=== PATIENT | male | born 1960 | race African-American/Black ===

== ENCOUNTER 2017-04-22 14:50 | Observation (INO) | payer BC ==
[2017-04-22 15:01] VITALS: BMI 29.2
--- NOTE | 2017-04-22 15:36 | PDOC ---
History of Present Illness - General History Source: Patient Exam Limitations: No Limitations <Dameon Calvo - Last Filed: 04/22/17 19:13> <Kurt Mancia - Last Filed: 04/22/17 19:37> - General Chief Complaint: Chest Pain Stated Complaint: CHEST PAIN Time Seen by Provider: 04/22/17 15:28 - History of Present Illness Initial Comments: 04/22/17 15:31 57M with pmh of dm2, HTN and GERD present with non-radiating non-reproducable sternal chest pain on exertion with diaphoresis for the past month. Has improved. Says "mouth is watery with the pain". Has a stress test done 2 years ago which was negative. No nausea, vomiting, dizziness, diaphoresis, sob, edema, dysuria. 04/22/17 15:35 04/22/17 17:37 04/22/17 17:38 (Dameon Calvo) Past History - Past Medical History Diabetes: Yes - Immunization History Immunization Up to Date: Yes - Psycho/Social/Smoking Cessation Hx Suicidal Ideation: No Smoking History: Current every day smoker Number of Cigarettes Smoked Daily: 10 Information on smoking cessation initiated: No Hx Alcohol Use: No Drug/Substance Use Hx: No <Dameon Calvo - Last Filed: 04/22/17 19:13> <Kurt Mancia - Last Filed: 04/22/17 19:37> - Past Medical History Allergies/Adverse Reactions: Allergies Allergy/AdvReac Type Severity Reaction Status Date / Time No Known Allergies Allergy Verified 04/22/17 14:59 Review of Systems - Review of Systems Constitutional: No: Symptoms Reported HEENTM: No: Symptoms Reported Respiratory: No: Symptoms reported Cardiac (ROS): Yes: See HPI ABD/GI: No: Symptoms Reported : No: Symptoms Reported Musculoskeletal: No: Symptoms Reported Integumentary: No: Symptoms Reported Neurological: No: Symptoms reported All Other Systems: Reviewed and Negative <Dameon Calvo - Last Filed: 04/22/17 19:13> *Physical Exam - Physical Exam General Appearance: Yes: Nourished, Appropriately Dressed. No: Apparent Distress HEENT: positive: EOMI, REMI, Normal ENT Inspection Neck: negative: Tender Respiratory/Chest: positive: Lungs Clear, Normal Breath Sounds. negative: Chest Tender Cardiovascular: positive: Regular Rhythm, Regular Rate, S1, S2 Gastrointestinal/Abdominal: positive: Normal Bowel Sounds, Soft, Protuberent. negative: Tender Musculoskeletal: positive: Vertebral Tenderness, Other (lipoma-like mass on back , for 20 years.). negative: CVA Tenderness <UmeshDameon - Last Filed: 04/22/17 19:13> - Vital Signs Last Vital Signs Temp Pulse Resp BP Pulse Ox 98.4 F 97 H 18 153/113 99 04/22/17 14:59 04/22/17 14:59 04/22/17 14:59 04/22/17 14:59 04/22/17 15:30 Heart Score/ECG Review - History History: Slightly suspicious - Electrocardiogram EKG: Normal - Age Age: 45-65 - Risk Factors Risk Factors Heart Score: Yes Hx Hypercholesterolemia, Yes Hx Hypertension, Yes Hx Diabetes, Yes Smoking History, Yes Positive family hx of cardiac disease Based on the list above the patient has:: >/=3 risk factors or Hx atherosclerotic disease - Troponin Troponin: </= normal limit - Score Heart Score - Total: 3 <Dameon Calvo - Last Filed: 04/22/17 19:13> ED Treatment Course - LABORATORY CBC & Chemistry Diagram: 04/22/17 15:30 04/22/17 15:30 <UmeshDameon - Last Filed: 04/22/17 19:13> - LABORATORY CBC & Chemistry Diagram: 04/22/17 15:30 04/22/17 15:30 <Kurt Manica - Last Filed: 04/22/17 19:37> - ADDITIONAL ORDERS Additional order review: Laboratory Results 04/22/17 15:30 Sodium 139 Potassium 4.4 Chloride 101 Carbon Dioxide 29 Anion Gap 9 BUN 16 Creatinine 1.5 H Creat Clearance w eGFR 48.41 Random Glucose 130 H Calcium 9.9 Total Bilirubin 0.6 AST 28 ALT 31 Alkaline Phosphatase 115 Creatine Kinase 519 H Creatine Kinase Index 0.5 CK-MB (CK-2) 2.700 Troponin I < 0.02 Total Protein 8.1 Albumin 3.8 04/22/17 15:30 RBC 5.10 MCV 80.7 MCHC 31.9 L RDW 15.7 MPV 9.9 Neutrophils % 68.4 Lymphocytes % 20.4 Monocytes % 8.8 Eosinophils % 1.8 Basophils % 0.6 - RADIOLOGY Radiology Studies Ordered: Category Date Time Status CHEST X-RAY PORTABLE* [RAD] Stat Radiology 04/22/17 16:22 Completed - Medications Given in the ED: ED Medications Discontinued Medications Generic Name Dose Route Start Last Admin Trade Name Astrid PRN Reason Stop Dose Admin Aspirin 243 mg 04/22/17 16:22 04/22/17 16:23 Asa - PO 04/22/17 16:23 243 mg ONCE ONE Administration Medical Decision Making <Dameon Calvo - Last Filed: 04/22/17 19:13> <Kurt Mancia - Last Filed: 04/22/17 19:37> - Medical Decision Making 04/22/17 17:38 57M with pmh of dm2, HTN and GERD present with non-radiating non-reproducable sternal chest pain on exertion with diaphoresis for the past month. EKG: sinus rhythm 04/22/17 17:40 CXR: neg 04/22/17 17:44 (Dameon Calvo) *DC/Admit/Observation/Transfer - Discharge Dispostion Admit: Yes <Dameon Calvo - Last Filed: 04/22/17 19:13> - Discharge Dispostion Admit: Yes <Kurt Mancia - Last Filed: 04/22/17 19:37> Diagnosis at time of Disposition: Unstable angina - Discharge Dispostion Condition at time of disposition: Stable - Referrals Referrals: Victorino Hill MD [Primary Care Provider] -
[2017-04-22 15:58] LABS: BASOPHIL 0.6 % (0-2.0); EOSINOPHIL 1.8 % (0-4.5); MCH 25.8 pg (25.7-33.7); MCHC 31.9 g/dl (32.0-35.9); MEAN CELL VOLUME 80.7 fl (80-96); MEAN PLT VOLUME 9.9 fl (7.5-11.1); NEUTROPHILS 68.4 % (42.8-82.8); PLATELET COUNT 286 K/MM3 (134-434); RDW 15.7 % (11.9-15.9); WHITE BLOOD COUNT 7.3 K/mm3 (4.0-10.0)
[2017-04-22 16:20] LABS: ALBUMIN 3.8 g/dl (3.4-5.0); ANION GAP 9 (8-16); BILIRUBIN,TOTAL 0.6 mg/dL (0.2-1.0); CALCIUM 9.9 mg/dL (8.5-10.1); CO2 29 mmol/L (21-32); CREATININE 1.5 mg/dL (0.7-1.3); GLUCOSE,RANDOM 130 mg/dL (74-106); SGOT/AST 28 U/L (15-37); SGPT/ALT 31 U/L (12-78); TOT PROT 8.1 g/dl (6.4-8.2)
[2017-04-22] MEDS ORDERED: ASPIRIN 81 MG CHEWABLE TABLETS PO ONE (16:22)
[2017-04-22 16:23] LABS: ALK PHOS 115 U/L (45-117); CPK 519 IU/L (39-308); TROPONIN I < 0.02 ng/ml (0.00-0.05)
--- NOTE | 2017-04-22 16:23 | PDOC ---
Attending Attestation - Resident Resident Name: Dameon Calvo - ED Attending Attestation I have performed the following: I have examined & evaluated the patient, The case was reviewed & discussed with the resident, I agree w/resident's findings & plan, Exceptions are as noted - HPI HPI: 04/22/17 16:20 57y M hx of htn, hl, dm, +smoking history presents with intermittent cp x 1 month - pt endorses the pain is a burning sensation but gets worse when he is walking around, lasts for approx 10 min and is associated with diaphoresis and nausea. Pt currently denies any chets pain. GENERAL: The patient is awake, alert, and fully oriented, Nontoxic - in no acute distress. HEAD: Normocephalic, atraumatic. EYES: extraocular movements intact, sclera anicteric, conjunctiva clear. ENT: Normal voice, Moist mucous membranes. NECK: Normal range of motion, supple LUNGS: Breath sounds equal, clear to auscultation bilaterally. No wheezes, no rhonchi, no rales. HEART: Regular rate and rhythm, normal S1 and S2 without murmur, rub or gallop. ABDOMEN: Soft, nontender, normoactive bowel sounds. No guarding, no rebound. . No CVA tenderness EXTREMITIES: Normal range of motion, no edema. No clubbing or cyanosis. No cords, erythema, or tenderness. NEUROLOGICAL: No facial assymetry, Normal speech, PSYCH: Normal mood, normal affect. SKIN: Warm, Dry, normal turgor, Concern for possible ACS due to exertional worsening of symptoms, possible it is just gerd. + Significant risk factors HEART score of 4 will give asa r/o acs with trops obs for risk stratification - Physicial Exam PE: 04/24/17 16:15 see above - Medical Decision Making 04/24/17 16:15 see clarence <Kurt Mancia - Last Filed: 04/24/17 16:17> Heart Score/ECG Review - History History: Moderately suspicious - Electrocardiogram EKG: Normal - Age Age: 45-65 - Risk Factors Risk Factors Heart Score: Yes Hx Hypercholesterolemia, Yes Hx Hypertension, Yes Hx Diabetes, Yes Smoking History, Yes Positive family hx of cardiac disease Based on the list above the patient has:: >/=3 risk factors or Hx atherosclerotic disease - Troponin Troponin: </= normal limit - Score Heart Score - Total: 4 <Dameon Calvo - Last Filed: 04/22/17 18:24> - History History: Moderately suspicious - Electrocardiogram EKG: Normal - Age Age: 45-65 - Risk Factors Risk Factors Heart Score: Yes Hx Hypercholesterolemia, Yes Hx Hypertension, Yes Hx Diabetes, Yes Smoking History Based on the list above the patient has:: >/=3 risk factors or Hx atherosclerotic disease - Troponin Troponin: </= normal limit - Score Heart Score - Total: 4 - ECG Impressions Comment:: 04/22/17 16:24 Twelve-lead EKG was performed and reviewed by me. There is normal sinus rhythm with a normal rate. rate of 79 The axis is normal. The intervals are normal. There is normal R wave progression There are no ST or T wave abnormalities. <Kurt Mancia - Last Filed: 04/24/17 16:17>
[2017-04-22] MEDS ORDERED: ASPIRIN 81 MG CHEWABLE TABLETS ONE (16:28)
[2017-04-22] MEDS ORDERED: METOPROLOL TARTRATE 25 MG TABLET (FP) PO ONE (19:57)
--- NOTE | 2017-04-22 19:57 | PN ---
Teaching Attending Note Name of Resident: Lois Lockwood ATTENDING PHYSICIAN STATEMENT I saw and evaluated the patient. I reviewed the resident's note and discussed the case with the resident. I agree with the resident's findings and plan as documented. SUBJECTIVE: 57 year old male presents c/o 2 month history of intermittent mid sternal exertional chest pain , 6/7 in intensity , non radiating . Today had it occurring while watching TV. PMH: Hyperlipidemia HTN DM Smoking OBJECTIVE: Vital Signs Temperature 98.4 F 04/22/17 14:59 Pulse Rate 97 H 04/22/17 14:59 Respiratory Rate 18 04/22/17 14:59 Blood Pressure 153/113 04/22/17 14:59 O2 Sat by Pulse Oximetry (%) 99 04/22/17 15:30 HEENT perrl, eom intact CVS s1 s2 heard mo mrg RS CTA b/l ABD soft NT CBC, BMP 04/22/17 15:30 04/22/17 15:30 ASSESSMENT AND PLAN: 1. Chest pain - telemetry - cardiac enzymes - BP control - nitro sl prn for chest pain - stress test and cardiology evaluation 2. HTN - uncontrolled - stat metoprolol 25mg po - monitor 3. DM - start insulin SS while in the hospital 4. Mild renal insufficiency - unknown baseline - trial of fluids - repeat renal function in am - outpatient follow up
[2017-04-22] MEDS ORDERED: SODIUM CHLORIDE 1,000 ML IV SCH (20:00)
[2017-04-22] MEDS: SODIUM CHLORIDE 1,000 ML IV SCH (20:10)
[2017-04-22] MEDS ORDERED: METOPROLOL TARTRATE 25 MG TABLET (FP) ONE (20:26)
--- NOTE | 2017-04-22 21:12 | HP ---
CHIEF COMPLAINT: chest pain PCP: none Nephro: Dr. Barnes Endocrine: Dr. Hill HISTORY OF PRESENT ILLNESS: 57 yr old man with NIDDMII, HTN, HLD, current everyday smoker presents with intermittent substernal aching nonradiating nonreproducible chest pain worse with exertion lasting 5-10 for the past two months. Previously it would occur when he walked for 20mins, he would need to rest for 20mins to recover. Last night the symptoms occurred while sitting watching TV, worse than usual. Continuing activity would make the pain worse, resting makes the pain better. chest pain is not related to food ingestion. Says he received a stress test [address] [facility] when he had similar symptoms, recalls the stress test was negative. Recently seen by film developer who sent him for renal u/s due to a concern for lupus, and was told the results was normal, he does not recall being told his Cr was elevated in the past. 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 2 weeks ago for callous removal, is unsure of his last Hba1c) HTN HLD PAST SURGICAL HISTORY: none Social History: Smoking: current everyday 1/2pk/day since he was 17yrs old Alcohol: every weekend, 10oz of bacardi in one sitting Drugs: denies Family History: brother with DM, sister with DM and HTN, denies family hx of early MT/stroke, cancers, rheumatological disorders Allergies No Known Allergies Allergy (Verified 04/22/17 14:59) HOME MEDICATIONS: Home Medications Medication Instructions Recorded Amlodipine Besylate [Norvasc -] 10 mg PO DAILY 04/22/17 Aspirin [ASA -] 81 mg PO DAILY 04/22/17 Atorvastatin Ca [Lipitor] 10 mg PO DAILY 04/22/17 Metformin HCl [Glucophage -] 500 mg PO DAILY 04/22/17 Metformin HCl [Metformin HCl ER] 1,000 mg PO DAILY 04/22/17 REVIEW OF SYSTEMS CONSTITUTIONAL: Absent: fever, chills, diaphoresis, generalized weakness, malaise, loss of appetite, weight change HEENT: Absent: rhinorrhea, nasal congestion, throat pain, throat swelling, difficulty swallowing, mouth swelling, ear pain, eye pain, visual changes CARDIOVASCULAR: Present: chest pain, Absent: syncope, palpitations, irregular heart rate, lightheadedness, peripheral edema RESPIRATORY: Absent: cough, shortness of breath, dyspnea with exertion, orthopnea, wheezing, stridor, hemoptysis GASTROINTESTINAL: Absent: abdominal pain, abdominal distension, nausea, vomiting, diarrhea, constipation, melena, hematochezia GENITOURINARY: Absent: dysuria, frequency, urgency, hesitancy, hematuria, flank pain, genital pain MUSCULOSKELETAL: Absent: myalgia, arthralgia, joint swelling, back pain, neck pain SKIN: Absent: rash, itching, pallor HEMATOLOGIC/IMMUNOLOGIC: Absent: easy bleeding, easy bruising, lymphadenopathy, frequent infections ENDOCRINE: Absent: unexplained weight gain, unexplained weight loss, heat intolerance, cold intolerance NEUROLOGIC: Absent: headache, focal weakness or paresthesias, dizziness, unsteady gait, seizure, mental status changes, bladder or bowel incontinence PSYCHIATRIC: Absent: anxiety, depression, suicidal or homicidal ideation, hallucinations. PHYSICAL EXAMINATION Vital Signs - 24 hr 04/22/17 04/22/17 14:59 15:30 Temperature 98.4 F Pulse Rate 97 H Respiratory 18 Rate Blood Pressure 153/113 O2 Sat by Pulse 99 99 Oximetry (%) GENERAL: Awake, alert, and fully oriented, in no acute distress. HEAD: Normal with no signs of trauma. EYES: Pupils equal, round and reactive to light, extraocular movements intact, sclera anicteric, conjunctiva clear. No lid lag. EARS, NOSE, THROAT: Ears normal, nares patent, oropharynx clear without exudates. Moist mucous membranes. NECK: Normal range of motion, supple without lymphadenopathy, JVD, or masses. LUNGS: Breath sounds equal, clear to auscultation bilaterally. No wheezes, and no crackles. No accessory muscle use. HEART: Regular rate and rhythm, normal S1 and S2 without murmur, rub or gallop. ABDOMEN: Soft, nontender, not distended, normoactive bowel sounds, no guarding, no rebound, no masses. No hepatomegaly or splenomegaly. MUSCULOSKELETAL: Normal range of motion at all joints. No bony deformities or tenderness. No CVA tenderness. UPPER EXTREMITIES: 2+ radial pulses, warm, well-perfused. No cyanosis. No clubbing. No peripheral edema. LOWER EXTREMITIES: 2+ DP pulses, warm, well-perfused. No calf tenderness. No peripheral edema. b/l medial soles with callouses. NEUROLOGICAL: Cranial nerves II-XII intact. Normal speech. Normal gait. PSYCHIATRIC: Cooperative. Good eye contact. Appropriate mood and affect. SKIN: Warm, dry, normal turgor, no rashes or lesions noted, normal capillary refill. Laboratory Results - last 24 hr 04/22/17 04/22/17 15:30 15:30 WBC 7.3 RBC 5.10 Hgb 13.1 Hct 41.2 MCV 80.7 MCH 25.8 MCHC 31.9 L RDW 15.7 Plt Count 286 MPV 9.9 Neutrophils % 68.4 Lymphocytes % 20.4 Monocytes % 8.8 Eosinophils % 1.8 Basophils % 0.6 Sodium 139 Potassium 4.4 Chloride 101 Carbon Dioxide 29 Anion Gap 9 BUN 16 Creatinine 1.5 H Creat Clearance w eGFR 48.41 Random Glucose 130 H Calcium 9.9 Total Bilirubin 0.6 AST 28 ALT 31 Alkaline Phosphatase 115 Creatine Kinase 519 H Creatine Kinase Index 0.5 CK-MB (CK-2) 2.700 Troponin I < 0.02 Total Protein 8.1 Albumin 3.8 ASSESSMENT/PLAN: 57 yr NIDDM II, HTN, HLD presents with intermittent chest pain placed on telemetry to r/o ACS. #r/o ACS - trend trops x2, - place on tele to r/o arrhythmia - echo - cardiology consult for evaluation for stress test given heart score of 4 - TSH level, lipid profile and HBA1c for further assessment - angina is also possible if ACS is r/o given pt's risk factors of DM, uncontrolled HTN, smoking #Elevated Cr, elevated creatine kinase - unknown baseline - will try to reach film developer for baseline - 2L NS bolus - urine studies - 11/2016 renal u/s normal #HTN - lopressor 25mg po once this evening - amlodapine 10mg po daily #DM - BGM ACHS, with NISS - hold metformin and glipizide #HLD - continue ASA 81mg po - lipitor 10mg po dialy #Smoking - smoking cessation discussed, counseling provided, pt declined nicotine patch, aware that he cannot smoke in the hospital - plans on quitting soon #diet: low Na/diabetic diet #DVT: heparin 5000BID Visit type - Emergency Visit Emergency Visit: Yes Care time: The patient presented to the Emergency Department on the above date and was hospitalized for further evaluation of their emergent condition. - New Patient This patient is new to me today: Yes Date on this admission: 04/22/17 - Critical Care Critical Care patient: No
[2017-04-22] MEDS: HEPARIN NA (PORCINE) 5,000 UNITS/ML 1ML VIAL SQ SCH (23:01)
[2017-04-23] MEDS: INSULIN SLIDING SCALE (NOVOLOG) 1 VIAL SQ SCH ×5 (06:39→21:17)
[2017-04-23] MEDS: SODIUM CHLORIDE 1,000 ML IV SCH ×2 (06:44→21:01)
[2017-04-23] MEDS: HEPARIN NA (PORCINE) 5,000 UNITS/ML 1ML VIAL SQ SCH ×2 (09:46→09:52)
[2017-04-23] MEDS ORDERED: ASPIRIN 81 MG CHEWABLE TABLETS PO SCH (10:00)
[2017-04-23] MEDS ORDERED: amLODIPine BESYLATE 10 MG TABLET (FP) PO SCH (10:00)
--- NOTE | 2017-04-23 10:51 | EKG ---
Test Reason : Blood Pressure : / mmHG Vent. Rate : 069 BPM Atrial Rate : 069 BPM P-R Int : 138 ms QRS Dur : 100 ms QT Int : 394 ms P-R-T Axes : 057 061 011 degrees QTc Int : 422 ms NORMAL SINUS RHYTHM NORMAL ECG WHEN COMPARED WITH ECG OF 22-APR-2017 15:08, NO SIGNIFICANT CHANGE WAS FOUND Confirmed by RASTA KATZ MD ([id number]) on 04/23/2017 10:50:42 AM Referred By: ACACIA KAUFFMAN Confirmed By:RASTA KATZ MD
--- NOTE | 2017-04-23 10:54 | EKG ---
Test Reason : Blood Pressure : / mmHG Vent. Rate : 079 BPM Atrial Rate : 079 BPM P-R Int : 130 ms QRS Dur : 104 ms QT Int : 374 ms P-R-T Axes : 056 049 010 degrees QTc Int : 428 ms NORMAL SINUS RHYTHM POSSIBLE LEFT ATRIAL ENLARGEMENT BORDERLINE ECG NO PREVIOUS ECGS AVAILABLE Confirmed by RASTA KATZ MD ([id number]) on 04/23/2017 10:54:04 AM Referred By: Confirmed By:RASTA KATZ MD
--- NOTE | 2017-04-23 13:56 | CON.CARD ---
Consult Consult Specialty:: Cardiology - History of Present Illness Chief Complaint: chest pain History of Present Illness: 57 M with HTN, smoking and DM with over a month history of chest tightness with radiation to the neck and nausea with diaphoresis. Symptoms occurred only with exertion and relieved with rest. Prior to his admission, he started to have rest pain. Now relieved. - History Source History Provided By: Patient Limitations to Obtaining History: No Limitations - Past Medical History Endocrine: Yes: Diabetes Mellitus - Alcohol/Substance Use Hx Alcohol Use: No - Smoking History Smoking history: Current every day smoker Have you smoked in the past 12 months: No Aproximately how many cigarettes per day: 10 Home Medications - Allergies Allergies/Adverse Reactions: Allergies Allergy/AdvReac Type Severity Reaction Status Date / Time No Known Allergies Allergy Verified 04/22/17 14:59 - Home Medications Home Medications: Ambulatory Orders Amlodipine Besylate [Norvasc -] 10 mg PO DAILY 04/22/17 Aspirin [ASA -] 81 mg PO DAILY 04/22/17 Atorvastatin Ca [Lipitor] 10 mg PO DAILY 04/22/17 Metformin HCl [Glucophage -] 500 mg PO DAILY 04/22/17 Metformin HCl [Metformin HCl ER] 1,000 mg PO DAILY 04/22/17 Review of Systems - Review of Systems Constitutional: reports: No Symptoms Eyes: reports: No Symptoms HENT: reports: No Symptoms Cardiovascular: reports: Chest Pain, Shortness of Breath Respiratory: reports: SOB Gastrointestinal: reports: No Symptoms - Risk Factors Known Risk Factors: Yes: Diabetes Mellitus, Hypertension, Smoking Vital Signs: Vital Signs Temperature 97.5 F L 04/23/17 09:49 Pulse Rate 71 04/23/17 09:49 Respiratory Rate 18 04/23/17 09:49 Blood Pressure 144/89 04/23/17 09:49 O2 Sat by Pulse Oximetry (%) 99 04/23/17 11:00 Constitutional: Yes: Well Nourished, No Distress Eyes: Yes: WNL, Conjunctiva Clear, EOM Intact HENT: Yes: Atraumatic, Normocephalic Neck: Yes: Supple, Trachea Midline Respiratory: Yes: Regular, CTA Bilaterally Gastrointestinal: Yes: Normal Bowel Sounds, Soft Renal/: Yes: WNL Cardiovascular: Yes: Regular Rate and Rhythm Heart Sounds: Yes: S1, S2 Murmur: No: Systolic Murmur, Diastolic Murmur, Grade 1, Grade 2, Grade 3, Grade 4, Grade 5, Grade 6 Extremities: Yes: WNL Edema: No - Other Data Labs, Other Data: Troponin, BNP 04/23/17 06:00 Troponin I < 0.02 Troponin, BNP 04/23/17 06:00 Troponin I < 0.02 Laboratory Tests 04/22/17 04/22/17 15:30 15:30 Hgb 13.1 Hct 41.2 Plt Count 286 BUN 16 Creatinine 1.5 H Echo: Report Reviewed Ejection Fraction %: LVEF > or = 40 % Imaging - Results Chest X-ray: Report Reviewed EKG: Image Reviewed (NSR) Assessment/Plan 57 M HTN smoker with DM with unstable angina. Recommend transfer to [facility] for Cardiac catheterization. Risks, benefits and alternatives were explained to the patient and his partner. Please place the patient on IV heparin or LMWH. Continue with ASA/Beta carlee Increase Lipitor 80mg HS Plavix 300mg x1 today. Hold Metformin
--- NOTE | 2017-04-23 13:59 | PN ---
Teaching Attending Note Name of Resident: Roland Dee ATTENDING PHYSICIAN STATEMENT I saw and evaluated the patient. I reviewed the resident's note and discussed the case with the resident. I agree with the resident's findings and plan as documented. SUBJECTIVE:no repeated episodes of CP while at the hospital. has similar episode 2 years ago and had stress test at that time which he reports as negative. has followed up with the director of casework since then but it has been some time since he saw them. states the CP has been slowly increasing worsening even now with minimal activity assoc with SOB. denies fever, chills, N/V/C/D OBJECTIVE: Last Vital Signs Temp Pulse Resp BP Pulse Ox 97.5 F L 71 18 144/89 99 04/23/17 09:49 04/23/17 09:49 04/23/17 09:49 04/23/17 09:49 04/23/17 11:00 General NAD CV S1 S2 RRR no murmur/rub/gallop no chest wall tenderness Lungs CTA B?L no wheezing/rales/rhonchi ASSESSMENT AND PLAN: 57yo M with PMH DM, HTN, dyslipidemia and smoker presented to the ER with CP 1. Typical CP- no repeated episodes. no events on cardiac markers. due to high risk factors (DM, HTN, +smoker, + family Hx) would recommend stress test. pt ate this AM. will see if can try to do test later in the day vs tomorrow. cardio consulted. on asa, statin 2. GABRIEL- unknown baseline Cr. call PMD to obtain. IVF. reports having recent kidney u/s indicating this likely not new. avoid nephrotoxic agents. urine studies pending 3. HTN- above goal. SBP <140 in DM. will start low dose betablocker. monitor 4. DM- uncontrolled. A1c 9.4. does not check sugars at home. pt has fear of needles. likely not to be compliant with insulin. will d/w pt risks/benefits. if does not comply will need to increase medical therapy (only on metformin low dose). nutritional consult. iss, bgm 5. Continuous nicotine dependence- counseled on need for smoking cessation. risks assoc with including advanced cardiovascular disease. refused nicotine patch 6. d/c planning pending results of NMST
[2017-04-23] MEDS: METOPROLOL TARTRATE 25 MG TABLET (FP) PO SCH ×2 (14:47→21:17)
[2017-04-23] MEDS ORDERED: HEPARIN NA (PORCINE) 5,000 UNITS/ML 1ML VIAL IVPUSH PRN ×2 (14:48)
[2017-04-23] MEDS ORDERED: CLOPIDOGREL BISULFATE 300 MG TABLET PO ONE (14:48)
[2017-04-23] MEDS ORDERED: HEPARIN - 25,000 UNIT in SODIUM CHLORIDE 495 ML IV SCH (15:00)
--- NOTE | 2017-04-23 16:06 | PN ---
Physical Exam: SUBJECTIVE: Patient seen and examined Patient states chest pain has resolved. Pt had stress test 2 years ago for similar chest pain that was negative per him. He states the chest pain is with exertion and has been worsening to the point where it is currently occuring at rest. OBJECTIVE: Vital Signs Period Temp Pulse Resp BP Sys/Brooke Pulse Ox Last 24 Hr 97.5 F-98.2 F 61-92 18-18 134-152/79-97 97-99 GENERAL: The patient is awake, alert, and fully oriented, in no acute distress. HEAD: Normal with no signs of trauma. EYES: PERRL, extraocular movements intact, sclera anicteric, conjunctiva clear. No ptosis. ENT: Ears normal, nares patent, oropharynx clear without exudates, moist mucous membranes. NECK: Trachea midline, full range of motion, supple. LUNGS: Breath sounds equal, clear to auscultation bilaterally, no wheezes, no crackles, no accessory muscle use. HEART: Regular rate and rhythm, S1, S2 without murmur, rub or gallop. ABDOMEN: Soft, nontender, nondistended, normoactive bowel sounds, no guarding, no rebound, no hepatosplenomegaly, no masses. EXTREMITIES: 2+ pulses, warm, well-perfused, no edema. NEUROLOGICAL: Cranial nerves II through XII grossly intact. Normal speech, gait not observed. PSYCH: Normal mood, normal affect. SKIN: Warm, dry, normal turgor, no rashes or lesions noted Laboratory Results - last 24 hr 04/23/17 04/23/17 04/23/17 06:00 06:34 11:27 POC Glucometer 176 217 Troponin I < 0.02 04/23/17 15:37 POC Glucometer 188 Troponin I Active Medications Generic Name Dose Route Start Last Admin Trade Name Freq PRN Reason Stop Dose Admin Amlodipine Besylate 10 mg 04/23/17 10:00 04/23/17 09:45 Norvasc - PO 10 mg DAILY LENORA Administration Aspirin 81 mg 04/23/17 10:00 04/23/17 09:45 Asa - PO 81 mg DAILY LENORA Administration Atorvastatin Calcium 80 mg 04/23/17 22:00 Lipitor - PO HS LENORA Heparin Sodium (Porcine) 1,000 unit 04/23/17 14:48 Heparin - IVPUSH PRN PRN Heparin Heparin Sodium (Porcine) 5,000 unit 04/23/17 14:48 Heparin - IVPUSH PRN PRN Heparin Sodium Chloride 1,000 mls @ 100 mls/hr 04/22/17 20:05 04/23/17 06:44 Normal Saline - IV 04/24/17 05:59 100 mls/hr ASDIR LENORA Administration Heparin Sodium (Porcine) 25, 500 mls @ 20 mls/hr 04/23/17 15:00 000 unit/ Sodium Chloride IV TITR LENORA Protocol 1,000 UNIT/HR Insulin Aspart 0 vial 04/22/17 22:00 04/23/17 11:35 Novolog Vial Sliding Scale - SQ 4 units ACHS LENORA Administration Protocol Metoprolol Tartrate 12.5 mg 04/23/17 14:00 04/23/17 14:47 Lopressor - PO 12.5 mg BID LENORA Administration ASSESSMENT/PLAN: 57 year old M with pmh of DM, HTN, HLD, and smoking presented to the ER for CP admitted for r/o acs #Chest Pain -originally resolved -had an episode with Dr. Garcia. -No events on the monitor -Paitent has significant risk factors -Possible transfer to [facility] for cardiac catheterization, patient deciding. -Continue aspirin 81 mg -Start lipitor 80 mg po hs -Start heparin drip IV -Plavix 300 mg x1 dose #CKD, -Patient's baseline is 1.5 -Avoid nephrotoxic agents -Urine studies pending #HTN -Continue metoprolol 12.5 mg po bid -Continue amlodipine 10 mg po dialy #DM -A1c is 9.4 -Patient afraid of needles and does not check BGM's or allow insulin coverage -Hold metformin #FEN/GI -IVF ns -wnl -sodium controlled diet #ppx -DVT- patient on heparin drip -GI: not indicated dispo: pending transfer dependent on patient's decision. Visit type - Emergency Visit Emergency Visit: Yes ED Registration Date: 04/22/17 Care time: The patient presented to the Emergency Department on the above date and was hospitalized for further evaluation of their emergent condition. - New Patient This patient is new to me today: Yes Date on this admission: 04/23/17 - Critical Care Critical Care patient: No
[2017-04-23] MEDS ORDERED: INSULIN (NOVOLOG) ASPART 100 UNITS/ML 10ML VIAL ONE ×3 (17:05→21:13)
[2017-04-23 21:26] VITALS: BP 158/91; PULSE 76; TEMP 98.2
[2017-04-23] MEDS ORDERED: ATORVASTATIN CA 80 MG TABLET (FP) PO SCH (22:00)
[2017-04-23] MEDS ORDERED: ATORVASTATIN CA 10 MG TABLET (FP) PO SCH ×2 (22:00)
--- NOTE | 2017-04-24 06:42 | DS ---
Physical Exam: LABS Selected Entries 04/22/17 04/23/17 04/23/17 14:59 19:30 21:00 Temperature 98.4 F 98.2 F Pulse Rate 97 H 76 Blood Pressure 153/113 158/91 O2 Sat by Pulse 100 Oximetry (%) Oxygen Delivery Room Air Method Laboratory Tests 04/22/17 04/22/17 04/22/17 10:20 15:30 15:30 WBC 7.3 Creatinine 1.5 H Random Glucose 130 H Hemoglobin A1c % 9.4 H Creatine Kinase 519 H Troponin I < 0.02 Triglycerides 338 H Cholesterol 281 H Total LDL Cholesterol 167 H HDL Cholesterol 53 TSH 0.53 04/23/17 06:00 WBC Creatinine Random Glucose Hemoglobin A1c % Creatine Kinase Troponin I < 0.02 Triglycerides Cholesterol Total LDL Cholesterol HDL Cholesterol TSH CXR- negative EKG- NSR, normal Echo- EF- 68.4, mild concentric LVH HOSPITAL COURSE: Date of Admission:04/22/17 Date of Discharge: 04/24/17 57 yr old man with NIDDMII, HTN, HLD, current everyday smoker presented with intermittent substernal aching nonradiating nonreproducible chest pain worse with exertion lasting 5-10 for the past two months. Previously it would occur when he walked for 20mins, he would need to rest for 20mins to recover. This time, symptoms occurred while sitting watching TV, worse than usual. Continuing activity would make the pain worse, resting makes the pain better. chest pain is not related to food ingestion. Says he received a stress test 2 years ago at [facility] when he had similar symptoms, recalls the stress test was negative. ED Course: (1) Tropx1 neg, EKG without acute ischemic changes (2) Heart score: 4 (3)ASA 325mg po given (4) cr -1.5 baseline Patient admitted for r/o acs. Trops were negative x2. Patient had no events on telemetry. Echocardiogram was done (results above). TSH and lipid panel was done (results above). Patient's a1c was elevated to 9.4. Patient had 1 repeated episode of chest pain while cardiology was evaluating the patient. Cardiology recommend transfer to [facility] for Cardiac catheterization. Risks, benefits and alternatives were explained to the patient and his partner. In regards to patient's A1c, patient is on metformin 500 mg. He is scared of needles and not likely to be compliant with insulin. Risks and benefits of elevated a1c were discsused with patient. Patient was evaluated seen by a automatic door mechanic and will follow up outpt regarding his DM Minutes to complete discharge: 45 Discharge Summary Reason For Visit: UNSTABLE ANGINA PECTORIS Condition: Stable - Instructions Referrals: Victorino Hill MD [Primary Care Provider] - Disposition: TRANSFER ACUTE CARE/OTHER HOSP - Home Medications Comprehensive Discharge Medication List: Ambulatory Orders Amlodipine Besylate [Norvasc -] 10 mg PO DAILY 04/22/17 Aspirin [ASA -] 81 mg PO DAILY 04/22/17 Metformin HCl [Glucophage -] 500 mg PO DAILY 04/22/17 Metformin HCl [Metformin HCl ER] 1,000 mg PO DAILY 04/22/17 Atorvastatin Ca [Lipitor] 80 mg PO HS tablet 04/24/17 Metoprolol Tartrate [Lopressor -] 12.5 mg PO BID tablet 04/24/17 This patient is new to me today: No Emergency Visit: Yes ED Registration Date: 04/22/17 Care time: The patient presented to the Emergency Department on the above date and was hospitalized for further evaluation of their emergent condition. Critical Care patient: No - Discharge Referral Referred to [facility] Med P.C.: No
[2017-04-24 15:26] LABS: CHOLESTEROL 281 mg/dL (50-200); LDL CHOLESTEROL (ONLY SJRH) 167 mg/dL (5-100)
[2017-04-24 15:32] LABS: THYROID STIMULATING HORMONE 0.53 uIU/ml (0.358-3.74)
== END 2017-04-23 22:15 | disposition short-term general hospital (02) ==
LOC: JER 14:50 → JERBED 19:37 → J4W 04-23 00:57
PROVIDERS: ADMIT Internal Medicine; ATTEND Internal Medicine
DX: I20.0 Unstable angina (principal); R07.9 Chest pain, unspecified; E11.9 Type 2 diabetes mellitus without complications; K21.9 Gastro-esophageal reflux disease without esophagitis; F17.210 Nicotine dependence, cigarettes, uncomplicated; E78.5 Hyperlipidemia, unspecified; R79.89 Other specified abnormal findings of blood chemistry; I12.9 Hypertensive chronic kidney disease with stage 1 through stage 4 chronic kidney disease, or unspecified chronic kidney disease; N18.9 Chronic kidney disease, unspecified; Z79.82 Long term (current) use of aspirin; Z79.84 Long term (current) use of oral hypoglycemic drugs
CPT/HCPCS: 36415; 71010-TC; 80053; 80061; 82553; 83036; 83721; 83930; 84443; 84484; 85025; 93005; 93010; 93306-TC; 99284-25; G0378; J1644

== ENCOUNTER → 2017-12-20 | Emergency (ER) | payer OTHER ==
[~2017-12-20] MED LIST: ASPIRIN 325 MG TABLET ONE; ASPIRIN 325 MG TABLET PO ONE; ASPIRIN 81 MG CHEWABLE TABLETS PO ONE; NITROGLYCERIN SUBLINGUAL 1/150 0.4 MG TAB ONE; NITROGLYCERIN SUBLINGUAL 1/200 0.3 MG BTL SL ONE
[2017-12-20 22:24] VITALS: BP 173/87; PULSE 80; TEMP 98; BMI 24.9
--- NOTE | 2017-12-20 23:21 | PDOC ---
History of Present Illness <Asiya Leon - Last Filed: 12/21/17 00:28> - History of Present Illness Initial Comments: 12/20/17 23:18 57 year old male with a PMH of NIDDM, HTN, HLD and CAD (s/p stent x3) presents to our ED c/o acute onset of chest pain. Pain is left sided, non-radiating, intermittent, "aching" 4/10 with no identifiable triggering or relieving factors. Denies any diaphoresis, lightheadedness, nausea, palpitations. Patient states the pain started this afternoon while he was watching television and resolved within 5-10 minutes. Pain returned while he was at dinner tonight prompting his visit to the ED. Patient states he was recently evaluated by his PMD and started on 4 new medications however he cannot recall the names. Smokes 5-7 cigarettes daily for > 40 years. Patient denies headache, fevers/chills, abdominal pain, diarrhea/constipation, dysuria/hematuria, recent travel or sick contacts. As per EMR patient evaluated for chest pain on 03/2017 and 07/2017. Echo in 2016 showed EF 68% and mild concentric LVH. <Adelina Bear - Last Filed: 12/21/17 05:53> - General Chief Complaint: Chest Pain Stated Complaint: CHEST PAIN Time Seen by Provider: 12/20/17 22:14 Past History <Asiya Leon - Last Filed: 12/21/17 00:28> - Past Medical History Cardiac Disorders: Yes (CAD) COPD: No Diabetes: Yes (NIddm) HTN: Yes Hypercholesterolemia: Yes - Surgical History Cardiac Surgery: Yes (Stents x 3 05/2017) - Immunization History Immunization Up to Date: Yes - Suicide/Smoking/Psychosocial Hx Smoking History: Current every day smoker Have you smoked in the past 12 months: Yes Number of Cigarettes Smoked Daily: 10 Information on smoking cessation initiated: No 'Breaking Loose' booklet given: 12/20/17 Hx Alcohol Use: No Drug/Substance Use Hx: No Substance Use Type: None Hx Substance Use Treatment: No <Adelina Bear - Last Filed: 12/21/17 05:53> - Past Medical History Allergies/Adverse Reactions: Allergies Allergy/AdvReac Type Severity Reaction Status Date / Time No Known Allergies Allergy Verified 08/23/17 14:59 Home Medications: Ambulatory Orders Amlodipine Besylate [Norvasc -] 10 mg PO DAILY 04/22/17 Aspirin [ASA -] 81 mg PO DAILY 04/22/17 Metformin HCl [Metformin HCl ER] 1,000 mg PO DAILY 04/22/17 metFORMIN HCL [Glucophage -] 500 mg PO DAILY 04/22/17 Atorvastatin Ca [Lipitor] 80 mg PO HS tablet 04/24/17 Metoprolol Tartrate [Lopressor -] 12.5 mg PO BID tablet 04/24/17 *Physical Exam - Vital Signs Last Vital Signs Temp Pulse Resp BP Pulse Ox 98 F 80 20 173/87 100 12/20/17 22:09 12/20/17 22:09 12/20/17 22:09 12/20/17 22:09 12/20/17 22:09 <Asiya Leon - Last Filed: 12/21/17 00:28> - Vital Signs Last Vital Signs Temp Pulse Resp BP Pulse Ox 98 F 80 20 173/87 100 12/20/17 22:09 12/20/17 22:09 12/20/17 22:09 12/20/17 22:09 12/20/17 22:09 <Adelina Bear - Last Filed: 12/21/17 05:53> Medical Decision Making - Medical Decision Making 12/21/17 00:28 PT ELOPED BEFORE I COULD SEE HIM --DR. LEON <Asiya Leon - Last Filed: 12/21/17 00:28> - Medical Decision Making 12/20/17 23:21 57 year old male with chest pain, h/o CAD. Will obtain ECG, basic labs, Troponin x1, CXR. 12/20/17 23:28 <Adelina Bear - Last Filed: 12/21/17 05:53> *DC/Admit/Observation/Transfer <Asiya Leon - Last Filed: 12/21/17 00:28> <Adelina Bear - Last Filed: 12/21/17 05:53> Diagnosis at time of Disposition: Chest pain - Discharge Dispostion Disposition: LEFT BEFORE [facility] GALVAN - Referrals Referrals: Joshua Gutierrez [Primary Care Provider] - - Patient Instructions - Post Discharge Activity
--- NOTE | 2017-12-22 13:40 | EKG ---
Test Reason : Blood Pressure : / mmHG Vent. Rate : 097 BPM Atrial Rate : 097 BPM P-R Int : 134 ms QRS Dur : 100 ms QT Int : 348 ms P-R-T Axes : 057 054 041 degrees QTc Int : 441 ms NORMAL SINUS RHYTHM NORMAL ECG WHEN COMPARED WITH ECG OF 08-JUL-2017 00:59, NO SIGNIFICANT CHANGE WAS FOUND Confirmed by MD MAR, LAUREN ([id number]) on 12/22/2017 1:40:21 PM Referred By: Confirmed By:LAUREN MANUEL MD
== END | disposition left against medical advice (07) ==
LOC: JER 22:03
DX: Z53.21 Procedure and treatment not carried out due to patient leaving prior to being seen by health care provider (principal)
CPT/HCPCS: 93005; 93010; 99282-25

== ENCOUNTER 2020-10-17 04:40 | Day surgery (SDC) | payer OTHER ==
[2020-10-11 15:07] VITALS: BMI 26.1
[2020-10-17 13:38] VITALS: BP 158/95; PULSE 75; TEMP 98.1
== END 2020-10-17 13:20 | disposition home or self-care (01) ==
LOC: JRADIR 04:40
PROVIDERS: ATTEND Internal Medicine
PROC: 3E013GC Introduction of Other Therapeutic Substance into Subcutaneous Tissue, Percutaneous Approach (ICD-10-PCS; principal; 2020-10-17)
DX: Z53.8 Procedure and treatment not carried out for other reasons (principal)
CPT/HCPCS: 82962

== ENCOUNTER 2020-11-20 05:43 | Day surgery (SDC) | payer OTHER ==
[2020-11-19 12:09] VITALS: BMI 25.5
[2020-11-20] MEDS ORDERED: SODIUM CHLORIDE 500 ML IV SCH (12:40)
[2020-11-20] MEDS ORDERED: MIDAZOLAM HCL 2 MG/2 ML SINGLE DOSE VIAL IVPUSH ONE ×2 (12:45→12:55)
[2020-11-20 16:55] VITALS: BP 160/82; PULSE 79; TEMP 98.1
== END 2020-11-20 17:00 | disposition home or self-care (01) ==
LOC: JRADIR 05:43
PROVIDERS: ATTEND Internal Medicine
PROC: 0TB03ZX Excision of Right Kidney, Percutaneous Approach, Diagnostic (ICD-10-PCS; principal; 2020-11-20)
DX: I12.9 Hypertensive chronic kidney disease with stage 1 through stage 4 chronic kidney disease, or unspecified chronic kidney disease (principal); E11.22 Type 2 diabetes mellitus with diabetic chronic kidney disease; R80.9 Proteinuria, unspecified; N18.30 Chronic kidney disease, stage 3 unspecified
CPT/HCPCS: 50200; 88300-TC; 88329

== ENCOUNTER 2021-08-11 09:34 | Inpatient (IN) | payer OTHER ==
[2021-08-11 09:42] VITALS: BMI 25.8
[2021-08-11] MEDS ORDERED: ALBUTEROL SO4 HFA INHALER IH ONE ×3 (10:27→11:14)
[2021-08-11 10:49] LABS: BASO % 0.5 % (0-2.0); EOS % 1.5 % (0-4.5); HEMATOCRIT 28.7 % (35.4-49); HEMOGLOBIN 9.3 GM/dL (11.7-16.9); LYMPH % 13.7 % (8-40); MCH 24.6 pg (25.7-33.7); MCHC 32.5 g/dl (32.0-35.9); MEAN CELL VOLUME 75.6 fl (80-96); MEAN PLT VOLUME 9.5 fl (7.5-11.1); MONO % 7.6 % (3.8-10.2); NEUT % 76.7 % (42.8-82.8); PLATELET COUNT 252 10^3/uL (134-434); RDW 15.1 % (11.9-15.9); WHITE BLOOD COUNT 7.1 K/mm3 (4.0-10.0)
[2021-08-11 10:57] LABS: INR 0.97 (0.83-1.09); PROTHROMBIN TIME (PATIENT) 11.4 SEC (9.7-13.0)
[2021-08-11 10:59] LABS: ACTIVATED PTT 31.4 SECONDS (25.2-36.5)
[2021-08-11 11:07] LABS: CHLORIDE 112 mmol/L (98-107); SODIUM 141 mmol/L (136-145)
[2021-08-11 11:10] LABS: CALCIUM 8.9 mg/dL (8.5-10.1)
[2021-08-11 11:11] LABS: ALBUMIN 3.3 g/dl (3.4-5.0); ANION GAP 8 MMOL/L (8-16); BLOOD UREA NITROGEN 28.8 mg/dL (7-18); CO2 20 mmol/L (21-32)
[2021-08-11 11:13] LABS: SGPT/ALT 31 U/L (13-61)
[2021-08-11 11:14] LABS: CREATININE 3.1 mg/dL (0.55-1.3); SGOT/AST 25 U/L (15-37)
[2021-08-11 11:15] LABS: BILIRUBIN,TOTAL 0.4 mg/dL (0.2-1); TOT PROT 7.5 g/dl (6.4-8.2)
[2021-08-11 11:16] LABS: ALK PHOS 111 U/L (45-117)
[2021-08-11] MEDS ORDERED: ASPIRIN 81 MG CHEWABLE TABLETS PO ONE (11:25)
[2021-08-11] MEDS ORDERED: ASPIRIN 81 MG CHEWABLE TABLETS ONE (11:30)
[2021-08-11 11:43] LABS: GLUCOSE,RANDOM 40 mg/dL (74-106)
[2021-08-11 17:04] VITALS: BP 157/84; PULSE 83; TEMP 98
== END 2021-08-11 17:04 | disposition left against medical advice (07) | DRG 198 ==
LOC: JER 09:34 → JERBED 12:58
PROVIDERS: ADMIT Family Medicine; ATTEND Family Medicine
DX: R07.89 Other chest pain (principal); E78.5 Hyperlipidemia, unspecified; I12.9 Hypertensive chronic kidney disease with stage 1 through stage 4 chronic kidney disease, or unspecified chronic kidney disease; N18.30 Chronic kidney disease, stage 3 unspecified; E11.22 Type 2 diabetes mellitus with diabetic chronic kidney disease; I25.10 Atherosclerotic heart disease of native coronary artery without angina pectoris; D64.9 Anemia, unspecified; F17.210 Nicotine dependence, cigarettes, uncomplicated; Z95.5 Presence of coronary angioplasty implant and graft
CPT/HCPCS: 36415; 71046-TC-FY; 80053; 82550; 82553; 82962; 84484; 85025; 85610; 85730; 93005; 93010; 99285-25; C9803; U0003; U0005

== ENCOUNTER 2022-06-13 09:03 | Inpatient (IN) | payer OTHER ==
[2022-06-13 09:16] VITALS: TEMP 97.9; BMI 25.8
[2022-06-13] MEDS ORDERED: SODIUM CHLORIDE 0.9% 500 ML INFUS.BAG IV ONE (10:33)
[2022-06-13 11:09] LABS: BASO % 0.5 % (0-2.0); EOS % 1.8 % (0-4.5); HEMATOCRIT 27.3 % (35.4-49); HEMOGLOBIN 9.2 GM/dL (11.7-16.9); LYMPH % 18.6 % (8-40); MCH 25.7 pg (25.7-33.7); MCHC 33.6 g/dl (32.0-35.9); MEAN CELL VOLUME 76.6 fl (80-96); MEAN PLT VOLUME 9.1 fl (7.5-11.1); MONO % 7.8 % (3.8-10.2); NEUT % 71.3 % (42.8-82.8); PLATELET COUNT 253 10^3/uL (134-434); RBC 3.56 M/mm3 (4.00-5.60); RDW 16.3 % (11.9-15.9); WHITE BLOOD COUNT 4.8 K/mm3 (4.0-10.0)
[2022-06-13 11:16] LABS: INR 1.03 (0.83-1.09); PROTHROMBIN TIME (PATIENT) 11.8 SEC (9.7-13.0)
[2022-06-13 11:18] LABS: ACTIVATED PTT 32.1 SECONDS (25.2-36.5)
[2022-06-13 11:34] LABS: ALBUMIN 3.3 g/dl (3.4-5.0); BLOOD UREA NITROGEN 41.5 mg/dL (7-18); MAGNESIUM 2.2 mg/dL (1.8-2.4)
[2022-06-13 11:36] LABS: CREATININE 4.3 mg/dL (0.55-1.3); PHOSPHOROUS 3.9 mg/dL (2.5-4.9)
[2022-06-13 11:38] LABS: TOT PROT 7.4 g/dl (6.4-8.2)
[2022-06-13 11:39] LABS: BILIRUBIN,TOTAL 0.6 mg/dL (0.2-1)
[2022-06-13 14:17] VITALS: BP 150/97; PULSE 73; RESP 19
[2022-06-13] MEDS ORDERED: INSULIN SLIDING SCALE (NOVOLOG) 1 VIAL SQ SCH (16:30)
[2022-06-13] MEDS ORDERED: HEPARIN NA (PORCINE) 5,000 UNITS/ML 1ML VIAL SQ SCH (22:00)
[2022-06-14] MEDS ORDERED: amLODIPine BESYLATE 10 MG TABLET (FP) PO SCH (10:00)
== END 2022-06-13 17:39 | disposition left against medical advice (07) | DRG 111 ==
LOC: JER 09:03 → JERBED 13:35
PROVIDERS: ADMIT Internal Medicine; ATTEND Internal Medicine
DX: R42 Dizziness and giddiness (principal); E11.649 Type 2 diabetes mellitus with hypoglycemia without coma; E11.22 Type 2 diabetes mellitus with diabetic chronic kidney disease; I25.10 Atherosclerotic heart disease of native coronary artery without angina pectoris; I12.9 Hypertensive chronic kidney disease with stage 1 through stage 4 chronic kidney disease, or unspecified chronic kidney disease; N18.30 Chronic kidney disease, stage 3 unspecified; Z79.4 Long term (current) use of insulin; D63.1 Anemia in chronic kidney disease; R55 Syncope and collapse; F17.210 Nicotine dependence, cigarettes, uncomplicated; Z53.29 Procedure and treatment not carried out because of patient's decision for other reasons
CPT/HCPCS: 36415; 70450-TC; 71045-TC-FY; 80053; 82962; 83735; 84100; 84484; 85025; 85610; 85730; 86850; 86900; 86901; 93005; 93010; 99285-25; C9803-CS; U0003; U0005

== ENCOUNTER 2022-09-09 12:44 | Inpatient (IN) | payer OTHER ==
[2022-09-09] MEDS ORDERED: ACETAMINOPHEN 500 MG TABLET (FP) PO ONE (13:03)
[2022-09-09 13:22] LABS: BASO % 0.8 % (0-2.0); EOS % 1.6 % (0-4.5); HEMATOCRIT 25.6 % (35.4-49); HEMOGLOBIN 8.2 GM/dL (11.7-16.9); LYMPH % 15.8 % (8-40); MCH 24.7 pg (25.7-33.7); MCHC 32.3 g/dl (32.0-35.9); MEAN CELL VOLUME 76.5 fl (80-96); MEAN PLT VOLUME 9.3 fl (7.5-11.1); MONO % 7.3 % (3.8-10.2); NEUT % 74.5 % (42.8-82.8); PLATELET COUNT 198 10^3/uL (134-434); RBC 3.34 M/mm3 (4.00-5.60); RDW 15.9 % (11.9-15.9); WHITE BLOOD COUNT 6.4 K/mm3 (4.0-10.0)
[2022-09-09 13:32] LABS: INR 1.06 (0.83-1.09); PROTHROMBIN TIME (PATIENT) 12.2 SEC (9.7-13.0)
[2022-09-09 13:34] LABS: ACTIVATED PTT 31.1 SECONDS (25.2-36.5)
[2022-09-09 13:57] LABS: ALBUMIN 3.4 g/dl (3.4-5.0); BLOOD UREA NITROGEN 41.3 mg/dL (7-18); MAGNESIUM 1.7 mg/dL (1.8-2.4)
[2022-09-09 14:00] LABS: CREATININE 4.3 mg/dL (0.55-1.3)
[2022-09-09 14:01] LABS: TOT PROT 6.9 g/dl (6.4-8.2)
[2022-09-09 14:02] LABS: BILIRUBIN,TOTAL 0.5 mg/dL (0.2-1)
[2022-09-09] MEDS ORDERED: LACTATED RINGERS SOLUTION 1000 ML INFUS.BAG IV ONE (14:49)
[2022-09-09] MEDS ORDERED: MAGNESIUM SULF 50% (8.12 MEQ/2 ML-1 GM VIAL) IVPB ONE (14:49)
[2022-09-09] MEDS ORDERED: ACETAMINOPHEN 325 MG TABLET (FP) ONE (15:00)
[2022-09-09] MEDS ORDERED: MAGNESIUM 1GM/D5W - 1 GM/100 ML IVPB IVPB ONE (15:00)
[2022-09-09] MEDS: hydrALAZINE HCL 50 MG TABLET (FP) PO SCH (21:25)
[2022-09-09] MEDS: HEPARIN NA (PORCINE) 5,000 UNITS/ML 1ML VIAL SQ SCH (21:26)
[2022-09-09] MEDS: ATORVASTATIN CA 80 MG TABLET (FP) PO SCH (21:26)
[2022-09-09] MEDS: INSULIN SLIDING SCALE (NOVOLOG) 1 VIAL SQ SCH (21:27)
[2022-09-09 23:51] VITALS: BMI 24.1
[2022-09-10] MEDS: INSULIN SLIDING SCALE (NOVOLOG) 1 VIAL SQ SCH ×4 (06:23→21:38)
[2022-09-10] MEDS: HEPARIN NA (PORCINE) 5,000 UNITS/ML 1ML VIAL SQ SCH ×3 (06:23→21:28)
[2022-09-10 08:50] LABS: BASO % 0.6 % (0-2.0); EOS % 2.9 % (0-4.5); HEMATOCRIT 25.6 % (35.4-49); HEMOGLOBIN 8.4 GM/dL (11.7-16.9); MCH 25.9 pg (25.7-33.7); MEAN CELL VOLUME 78.6 fl (80-96); MEAN PLT VOLUME 9.2 fl (7.5-11.1); MONO % 7.6 % (3.8-10.2); NEUT % 61.9 % (42.8-82.8); PLATELET COUNT 194 10^3/uL (134-434); RBC 3.25 M/mm3 (4.00-5.60); WHITE BLOOD COUNT 4.9 K/mm3 (4.0-10.0)
[2022-09-10 09:15] LABS: BLOOD UREA NITROGEN 38.9 mg/dL (7-18); CALCIUM 8.6 mg/dL (8.5-10.1)
[2022-09-10 09:16] LABS: MAGNESIUM 1.8 mg/dL (1.8-2.4)
[2022-09-10 09:19] LABS: BILIRUBIN,TOTAL 0.3 mg/dL (0.2-1); CREATININE 4.1 mg/dL (0.55-1.3); PHOSPHOROUS 3.1 mg/dL (2.5-4.9); TOT PROT 6.4 g/dl (6.4-8.2)
[2022-09-10] MEDS ORDERED: REGADENOSON 0.4 MG/5 ML PRE-FILLED SYRINGE IVPUSH ONE ×2 (09:59→10:00)
[2022-09-10] MEDS ORDERED: ASPIRIN 81 MG CHEWABLE TABLETS PO SCH (10:00)
[2022-09-10] MEDS: ASPIRIN COATED 81 MG TABLET.EC PO SCH (12:55)
[2022-09-10] MEDS: FAMOTIDINE 10 MG TABLET PO SCH (12:55)
[2022-09-10] MEDS: FERROUS SO4 325 MG TABLET (FP) PO SCH (12:56)
[2022-09-10] MEDS: LOSARTAN POTASSIUM 50 MG TABLET PO SCH (12:56)
[2022-09-10] MEDS: hydrALAZINE HCL 50 MG TABLET (FP) PO SCH ×2 (12:56→21:28)
[2022-09-10] MEDS: amLODIPine BESYLATE 10 MG TABLET (FP) PO SCH (12:57)
[2022-09-10] MEDS: CALCITRIOL 0.25 MCG CAPSULE (FP) PO SCH (12:57)
[2022-09-10 14:28] LABS: EPI CELLS 4 /uL (0-25.1); HYALINE CASTS 0 /uL (0-3.1); URINE APPEARANCE CLEAR; URINE BACTERIA 1 /uL (0-1359); URINE BILIRUBIN NEGATIVE (NEGATIVE); URINE COLOR YELLOW; URINE GLUCOSE (UA) TRACE (NEGATIVE); URINE KETONE NEGATIVE (NEGATIVE); URINE LEUK ESTERASE NEGATIVE (NEGATIVE); URINE NITRITE NEGATIVE (NEGATIVE); URINE PROTEIN 3+ (NEGATIVE); URINE RBC 20 /uL (0-23.9); URINE UROBILINOGEN 0.2 mg/dL (0.2-1.0); URINE WBC 7 /uL (0-25.8)
[2022-09-10] MEDS ORDERED: CLOPIDOGREL BISULFATE 300 MG TABLET PO ONE (15:00)
[2022-09-10] MEDS: SODIUM CHLORIDE 0.45% 1,000 ML IV SCH (16:48)
[2022-09-10] MEDS: ATORVASTATIN CA 80 MG TABLET (FP) PO SCH (21:28)
[2022-09-11] MEDS: INSULIN SLIDING SCALE (NOVOLOG) 1 VIAL SQ SCH ×4 (06:01→21:56)
[2022-09-11] MEDS: HEPARIN NA (PORCINE) 5,000 UNITS/ML 1ML VIAL SQ SCH ×3 (06:01→21:57)
[2022-09-11 08:21] LABS: HEMATOCRIT 23.8 % (35.4-49); HEMOGLOBIN 7.8 GM/dL (11.7-16.9); MCH 24.9 pg (25.7-33.7); MCHC 32.9 g/dl (32.0-35.9); MEAN CELL VOLUME 75.9 fl (80-96); PLATELET COUNT 178 10^3/uL (134-434); RBC 3.14 M/mm3 (4.00-5.60); RDW 16.1 % (11.9-15.9); WHITE BLOOD COUNT 5.2 K/mm3 (4.0-10.0)
[2022-09-11 08:25] LABS: PHOSPHOROUS 3.3 mg/dL (2.5-4.9)
[2022-09-11 08:26] LABS: ALBUMIN 2.9 g/dl (3.4-5.0)
[2022-09-11 08:27] LABS: TOT PROT 6.3 g/dl (6.4-8.2)
[2022-09-11 08:28] LABS: CALCIUM 8.3 mg/dL (8.5-10.1)
[2022-09-11 08:29] LABS: CREATININE 4.1 mg/dL (0.55-1.3); MAGNESIUM 1.6 mg/dL (1.8-2.4)
[2022-09-11 08:58] LABS: BILIRUBIN,TOTAL 0.3 mg/dL (0.2-1)
[2022-09-11] MEDS: hydrALAZINE HCL 50 MG TABLET (FP) PO SCH ×2 (10:06→21:51)
[2022-09-11] MEDS: FERROUS SO4 325 MG TABLET (FP) PO SCH (10:06)
[2022-09-11] MEDS: LOSARTAN POTASSIUM 50 MG TABLET PO SCH (10:07)
[2022-09-11] MEDS: ASPIRIN COATED 81 MG TABLET.EC PO SCH (10:07)
[2022-09-11] MEDS: FAMOTIDINE 10 MG TABLET PO SCH (10:07)
[2022-09-11] MEDS: amLODIPine BESYLATE 10 MG TABLET (FP) PO SCH (10:07)
[2022-09-11] MEDS: CLOPIDOGREL BISULFATE 75 MG TABLET (FP) PO SCH (10:07)
[2022-09-11] MEDS: CALCITRIOL 0.25 MCG CAPSULE (FP) PO SCH (10:07)
[2022-09-11] MEDS ORDERED: MAGNESIUM SULF 50% (8.12 MEQ/2 ML-1 GM VIAL) IVPB ONE (13:45)
[2022-09-11] MEDS: SODIUM CHLORIDE 0.45% 1,000 ML IV SCH (18:22)
[2022-09-11] MEDS ORDERED: LOSARTAN POTASSIUM 50 MG TABLET PO SCH (18:44)
[2022-09-11] MEDS: ATORVASTATIN CA 80 MG TABLET (FP) PO SCH (21:51)
[2022-09-12] MEDS: INSULIN SLIDING SCALE (NOVOLOG) 1 VIAL SQ SCH ×2 (06:16→13:14)
[2022-09-12] MEDS: HEPARIN NA (PORCINE) 5,000 UNITS/ML 1ML VIAL SQ SCH ×2 (06:21→13:15)
[2022-09-12 08:27] LABS: BASO % 0.4 % (0-2.0); HEMATOCRIT 22.8 % (35.4-49); HEMOGLOBIN 7.5 GM/dL (11.7-16.9); MCH 24.7 pg (25.7-33.7); MEAN CELL VOLUME 74.8 fl (80-96); MEAN PLT VOLUME 9.6 fl (7.5-11.1); MONO % 8.7 % (3.8-10.2); NEUT % 62.9 % (42.8-82.8); PLATELET COUNT 184 10^3/uL (134-434); RBC 3.05 M/mm3 (4.00-5.60); RDW 16.2 % (11.9-15.9); WHITE BLOOD COUNT 4.5 K/mm3 (4.0-10.0)
[2022-09-12 08:48] LABS: CALCIUM 8.5 mg/dL (8.5-10.1)
[2022-09-12 08:50] LABS: ALBUMIN 2.9 g/dl (3.4-5.0); BLOOD UREA NITROGEN 41.2 mg/dL (7-18); MAGNESIUM 2.3 mg/dL (1.8-2.4)
[2022-09-12 08:52] LABS: CREATININE 4.3 mg/dL (0.55-1.3); PHOSPHOROUS 3.2 mg/dL (2.5-4.9)
[2022-09-12 08:53] LABS: TOT PROT 6.2 g/dl (6.4-8.2)
[2022-09-12 08:54] LABS: BILIRUBIN,TOTAL 0.2 mg/dL (0.2-1)
[2022-09-12] MEDS: hydrALAZINE HCL 50 MG TABLET (FP) PO SCH (10:48)
[2022-09-12] MEDS: FERROUS SO4 325 MG TABLET (FP) PO SCH (10:48)
[2022-09-12] MEDS: CLOPIDOGREL BISULFATE 75 MG TABLET (FP) PO SCH (10:48)
[2022-09-12] MEDS: ASPIRIN COATED 81 MG TABLET.EC PO SCH (10:48)
[2022-09-12] MEDS: FAMOTIDINE 10 MG TABLET PO SCH (10:48)
[2022-09-12] MEDS: amLODIPine BESYLATE 10 MG TABLET (FP) PO SCH (10:48)
[2022-09-12] MEDS: CALCITRIOL 0.25 MCG CAPSULE (FP) PO SCH (10:49)
[2022-09-12 11:30] VITALS: BP 137/82; PULSE 63; RESP 24; TEMP 97.6
== END 2022-09-12 15:59 | disposition short-term general hospital (02) | DRG 198 ==
LOC: JER 12:44 → JERBED 14:05 → J4W 20:44 → OBSVTOIN 09-10 14:40
PROVIDERS: ADMIT Internal Medicine; ATTEND Internal Medicine
DX: I25.110 Atherosclerotic heart disease of native coronary artery with unstable angina pectoris (principal); E11.22 Type 2 diabetes mellitus with diabetic chronic kidney disease; I12.9 Hypertensive chronic kidney disease with stage 1 through stage 4 chronic kidney disease, or unspecified chronic kidney disease; N18.30 Chronic kidney disease, stage 3 unspecified; E78.5 Hyperlipidemia, unspecified; Z79.4 Long term (current) use of insulin; F17.210 Nicotine dependence, cigarettes, uncomplicated; D50.9 Iron deficiency anemia, unspecified; F41.9 Anxiety disorder, unspecified
CPT/HCPCS: 0241U-QW; 36415; 71045-TC-FY; 78452-TC; 80053; 80061; 81003; 82272; 82728; 82962; 83036; 83540; 83550; 83735; 83880; 84100; 84443; 84484; 85025; 85027; 85045; 85610; 85730; 87086; 93005; 93010; 93017; 93306-TC; 99285-25; A9502; G0378; J1644; J2785

== ENCOUNTER 2023-01-21 09:47 | Inpatient (IN) | payer OTHER ==
[2023-01-21 10:01] VITALS: BMI 22.8
[2023-01-21] MEDS ORDERED: ASPIRIN 81 MG CHEWABLE TABLETS PO ONE (10:23)
[2023-01-21] MEDS ORDERED: ASPIRIN 81 MG CHEWABLE TABLETS ONE (10:38)
[2023-01-21] MEDS ORDERED: SODIUM CHLORIDE 0.9% 500 ML INFUS.BAG IV ONE (11:21)
[2023-01-21 11:28] LABS: BASO % 0.6 % (0-2.0); EOS % 0.8 % (0-4.5); HEMATOCRIT 31.8 % (35.4-49); HEMOGLOBIN 10.3 GM/dL (11.7-16.9); LYMPH % 14.1 % (8-40); MCH 25.3 pg (25.7-33.7); MCHC 32.4 g/dl (32.0-35.9); MEAN CELL VOLUME 78.2 fl (80-96); MEAN PLT VOLUME 10.2 fl (7.5-11.1); NEUT % 78.5 % (42.8-82.8); PLATELET COUNT 274 10^3/uL (134-434); RBC 4.07 M/mm3 (4.00-5.60); RDW 15.6 % (11.9-15.9); WHITE BLOOD COUNT 6.9 K/mm3 (4.0-10.0)
[2023-01-21 11:34] LABS: INR 1.06 (0.83-1.09); PROTHROMBIN TIME (PATIENT) 12.3 SEC (9.7-13.0)
[2023-01-21 11:37] LABS: ACTIVATED PTT 32.4 SECONDS (25.2-36.5)
[2023-01-21 11:46] LABS: CHLORIDE 114 mmol/L (98-107); SODIUM 132 mmol/L (136-145)
[2023-01-21 11:48] LABS: ALBUMIN 3.9 g/dl (3.4-5.0); BLOOD UREA NITROGEN 78.5 mg/dL (7-18); CALCIUM 9.4 mg/dL (8.5-10.1); CO2 11 mmol/L (21-32); GLUCOSE,RANDOM 194 mg/dL (74-106); MAGNESIUM 2.3 mg/dL (1.8-2.4)
[2023-01-21 11:51] LABS: SGOT/AST 28 U/L (15-37); SGPT/ALT 32 U/L (13-61)
[2023-01-21 11:52] LABS: TOT PROT 8.8 g/dl (6.4-8.2)
[2023-01-21 11:54] LABS: ALK PHOS 100 U/L (45-117); BILIRUBIN,TOTAL 0.3 mg/dL (0.2-1)
[2023-01-21 11:58] LABS: ANION GAP 7 MMOL/L (8-16); POTASSIUM 6.4 mmol/L (3.5-5.1)
[2023-01-21] MEDS ORDERED: CALCIUM GLUC IN NACL, ISO-OSM 1 GM/50 ML BAG IVPB ONE ×2 (12:03→12:31)
[2023-01-21] MEDS ORDERED: ALBUTEROL SO4 2 MG TABLET PO ONE (12:51)
[2023-01-21] MEDS ORDERED: DEXTROSE 50%-WATER - 25 GM/50 ML VIAL IVPUSH ONE (12:51)
[2023-01-21] MEDS ORDERED: INSULIN REGULAR HUMAN 100 UNITS/ML *VIAL IVPUSH ONE (12:51)
[2023-01-21] MEDS ORDERED: SODIUM BICARBONATE 8.4% 50 MEQ/50 ML DISP.SYRIN IVPUSH ONE ×2 (12:53→14:10)
[2023-01-21] MEDS ORDERED: SODIUM ZIRCONIUM CYCLOSILICATE (LOKELMA) 5 GM PACKET PO SCH (13:00)
[2023-01-21 13:08] LABS: CHLORIDE 114 mmol/L (98-107); SODIUM 135 mmol/L (136-145)
[2023-01-21 13:09] LABS: CALCIUM 9.7 mg/dL (8.5-10.1)
[2023-01-21 13:10] LABS: BLOOD UREA NITROGEN 80.7 mg/dL (7-18); CO2 14 mmol/L (21-32); GLUCOSE,RANDOM 202 mg/dL (74-106)
[2023-01-21] MEDS ORDERED: ALBUTEROL SO4 0.083% IH SOL 2.5 MG/3 ML VIAL.NEB. NEB ONE ×2 (13:16→13:17)
[2023-01-21] MEDS ORDERED: SODIUM ZIRCONIUM CYCLOSILICATE (LOKELMA) 5 GM PACKET ONE ×3 (13:16→22:54)
[2023-01-21] MEDS ORDERED: SODIUM BICARBONATE 8.4% 50 MEQ/50 ML DISP.SYRIN ONE ×3 (13:17→20:02)
[2023-01-21] MEDS ORDERED: DEXTROSE 50%-WATER 25 GM/50 ML DISP.SYRIN ONE (13:19)
[2023-01-21 13:22] LABS: ANION GAP 7 MMOL/L (8-16); CREATININE 8.1 mg/dL (0.55-1.3); POTASSIUM 6.8 mmol/L (3.5-5.1)
[2023-01-21] MEDS ORDERED: ACETAMINOPHEN 325 MG TABLET (FP) PO PRN (14:53)
[2023-01-21] MEDS: INSULIN SLIDING SCALE (NOVOLOG) 1 VIAL SQ SCH ×2 (17:51→23:04)
[2023-01-21] MEDS ORDERED: SODIUM CHLORIDE 0.45% 1,000 ML with SODIUM BICARBONATE 8.4% - 50 MEQ IV SCH (19:45)
[2023-01-21] MEDS ORDERED: SODIUM BICARBONATE 8.4% - 50 MEQ in SODIUM CHLORIDE 0.45% 1,000 ML IV SCH (19:46)
[2023-01-21] MEDS: SODIUM ZIRCONIUM CYCLOSILICATE (LOKELMA) 5 GM PACKET PO SCH ×2 (20:15→23:01)
[2023-01-21] MEDS: SODIUM BICARBONATE 8.4% 50 MEQ/50 ML DISP.SYRIN IVPUSH SCH (20:16)
[2023-01-21] MEDS ORDERED: ATORVASTATIN CA 80 MG TABLET (FP) ONE (22:54)
[2023-01-21] MEDS ORDERED: hydrALAZINE HCL 25 MG TABLET (FP) ONE (22:54)
[2023-01-21] MEDS: hydrALAZINE HCL 25 MG TABLET (FP) PO SCH (23:00)
[2023-01-21] MEDS: ATORVASTATIN CA 80 MG TABLET (FP) PO SCH (23:01)
[2023-01-21] MEDS ORDERED: INSULIN (NOVOLOG) ASPART 100 UNITS/ML 10ML VIAL ONE (23:02)
[2023-01-22] MEDS: SODIUM BICARBONATE 8.4% 50 MEQ/50 ML DISP.SYRIN IVPUSH SCH (00:11)
[2023-01-22] MEDS: hydrALAZINE HCL 25 MG TABLET (FP) PO SCH ×3 (06:17→21:26)
[2023-01-22] MEDS: INSULIN SLIDING SCALE (NOVOLOG) 1 VIAL SQ SCH ×4 (06:19→21:26)
[2023-01-22 06:51] LABS: BLOOD UREA NITROGEN 72.3 mg/dL (7-18)
[2023-01-22 06:52] LABS: CALCIUM 8.5 mg/dL (8.5-10.1)
[2023-01-22 06:54] LABS: CREATININE 6.8 mg/dL (0.55-1.3)
[2023-01-22 06:56] LABS: BILIRUBIN,TOTAL 0.3 mg/dL (0.2-1)
[2023-01-22 07:12] LABS: ALBUMIN 2.9 g/dl (3.4-5.0); TOT PROT 6.6 g/dl (6.4-8.2)
[2023-01-22] MEDS: SODIUM CHLORIDE 0.45% 1,000 ML IV SCH ×2 (08:06→21:27)
[2023-01-22] MEDS: amLODIPine BESYLATE 10 MG TABLET (FP) PO SCH (09:04)
[2023-01-22] MEDS: ASPIRIN 81 MG CHEWABLE TABLETS PO SCH (09:04)
[2023-01-22] MEDS: CLOPIDOGREL BISULFATE 75 MG TABLET (FP) PO SCH (09:04)
[2023-01-22] MEDS ORDERED: LOSARTAN POTASSIUM 50 MG TABLET PO SCH (10:00)
[2023-01-22] MEDS: SODIUM BICARBONATE 650 MG TABLET PO SCH ×2 (13:49→21:26)
[2023-01-22] MEDS: ATORVASTATIN CA 80 MG TABLET (FP) PO SCH (21:26)
[2023-01-23 05:55] VITALS: PULSE 68; RESP 16
[2023-01-23] MEDS: hydrALAZINE HCL 25 MG TABLET (FP) PO SCH ×2 (06:32→14:22)
[2023-01-23] MEDS: INSULIN SLIDING SCALE (NOVOLOG) 1 VIAL SQ SCH ×2 (06:37→11:26)
[2023-01-23 08:53] LABS: POTASSIUM 3.9 mmol/L (3.5-5.1)
[2023-01-23 08:55] LABS: CALCIUM 8.3 mg/dL (8.5-10.1)
[2023-01-23 08:56] LABS: ALBUMIN 2.8 g/dl (3.4-5.0); BLOOD UREA NITROGEN 58.4 mg/dL (7-18)
[2023-01-23 09:01] LABS: BILIRUBIN,TOTAL 0.4 mg/dL (0.2-1); TOT PROT 6.6 g/dl (6.4-8.2)
[2023-01-23] MEDS: amLODIPine BESYLATE 10 MG TABLET (FP) PO SCH (09:02)
[2023-01-23] MEDS: ASPIRIN 81 MG CHEWABLE TABLETS PO SCH (09:02)
[2023-01-23] MEDS: CLOPIDOGREL BISULFATE 75 MG TABLET (FP) PO SCH (09:02)
[2023-01-23] MEDS: SODIUM BICARBONATE 650 MG TABLET PO SCH (09:04)
[2023-01-23 13:36] VITALS: BP 147/75; TEMP 97.8
== END 2023-01-23 14:50 | disposition home or self-care (01) | DRG 198 ==
LOC: JER 09:47 → JERBED 16:09 → J4S 23:30
PROVIDERS: ADMIT Family Medicine; ATTEND Family Medicine
DX: I25.119 Atherosclerotic heart disease of native coronary artery with unspecified angina pectoris (principal); N17.9 Acute kidney failure, unspecified; E78.5 Hyperlipidemia, unspecified; I12.9 Hypertensive chronic kidney disease with stage 1 through stage 4 chronic kidney disease, or unspecified chronic kidney disease; N18.4 Chronic kidney disease, stage 4 (severe); E11.22 Type 2 diabetes mellitus with diabetic chronic kidney disease; E87.5 Hyperkalemia; F17.200 Nicotine dependence, unspecified, uncomplicated; F41.9 Anxiety disorder, unspecified; R19.7 Diarrhea, unspecified; Z95.5 Presence of coronary angioplasty implant and graft
CPT/HCPCS: 0241U-QW; 36415; 71045-TC-FY; 76775-TC; 80048; 80053; 82962; 83735; 84484; 85025; 85610; 85730; 93005; 93010; 99285-25

== ENCOUNTER 2023-04-13 13:09 | Emergency (ER) | payer OTHER ==
[2023-04-13 13:18] VITALS: BMI 24.0
[2023-04-13] MEDS ORDERED: ACETAMINOPHEN 500 MG TABLET (FP) PO ONE (14:23)
[2023-04-13] MEDS ORDERED: ACETAMINOPHEN 500 MG TABLET (FP) ONE (14:51)
[2023-04-13 15:03] VITALS: BP 134/62; PULSE 56; RESP 20; TEMP 97.7
== END 2023-04-13 15:07 | disposition home or self-care (01) ==
LOC: JER 13:09
DX: R51.9 Headache, unspecified (principal); R19.7 Diarrhea, unspecified
CPT/HCPCS: 99283-25

== ENCOUNTER 2023-10-07 17:49 | Inpatient (IN) | payer OTHER ==
[2023-10-07 21:23] LABS: BASO % 0.8 % (0-2.0); EOS % 2.8 % (0-4.5); HEMATOCRIT 21.7 % (35.4-49); HEMOGLOBIN 7.1 GM/dL (11.7-16.9); LYMPH % 18.9 % (8-40); MCHC 32.6 g/dl (32.0-35.9); MEAN CELL VOLUME 79.8 fl (80-96); MEAN PLT VOLUME 9.1 fl (7.5-11.1); MONO % 10.4 % (3.8-10.2); NEUT % 67.1 % (42.8-82.8); PLATELET COUNT 242 10^3/uL (134-434); RBC 2.72 M/mm3 (4.00-5.60); WHITE BLOOD COUNT 6.3 K/mm3 (4.0-10.0)
[2023-10-07 21:48] LABS: INR 0.99 (0.83-1.09); PROTHROMBIN TIME (PATIENT) 11.5 SEC (9.7-13.0)
[2023-10-07 21:50] LABS: ACTIVATED PTT 29.8 SECONDS (25.2-36.5)
[2023-10-07 21:58] LABS: CHLORIDE 111 mmol/L (98-107); POTASSIUM 5.2 mmol/L (3.5-5.1); SODIUM 139 mmol/L (136-145)
[2023-10-07 22:00] LABS: ALBUMIN 3.4 g/dl (3.4-5.0); ANION GAP 9 mmol/L (4-13); BLOOD UREA NITROGEN 64.2 mg/dL (7-18); CALCIUM 8.8 mg/dL (8.5-10.1); CO2 19 mmol/L (21-32); GLUCOSE,RANDOM 220 mg/dL (74-106); MAGNESIUM 1.9 mg/dL (1.8-2.4)
[2023-10-07 22:03] LABS: SGOT/AST 33 U/L (15-37)
[2023-10-07 22:04] LABS: SGPT/ALT 30 U/L (13-61)
[2023-10-07 22:05] LABS: BILIRUBIN,TOTAL 0.3 mg/dL (0.2-1); TOT PROT 7.2 g/dl (6.4-8.2)
[2023-10-07 22:06] LABS: ALK PHOS 93 U/L (45-117)
[2023-10-07 22:20] LABS: CREATININE 7.7 mg/dL (0.55-1.3)
[2023-10-08] MEDS ORDERED: DOCUSATE SODIUM 100 MG CAPSULE (FP) PO PRN (01:47)
[2023-10-08] MEDS ORDERED: ACETAMINOPHEN 325 MG TABLET (FP) PO PRN (01:47)
[2023-10-08 08:02] LABS: BASO % 0.8 % (0-2.0); EOS % 2.1 % (0-4.5); HEMATOCRIT 21.7 % (35.4-49); HEMOGLOBIN 7.2 GM/dL (11.7-16.9); LYMPH % 19.2 % (8-40); MCH 26.3 pg (25.7-33.7); MCHC 33.3 g/dl (32.0-35.9); MEAN CELL VOLUME 78.9 fl (80-96); MEAN PLT VOLUME 9.3 fl (7.5-11.1); MONO % 11.1 % (3.8-10.2); NEUT % 66.8 % (42.8-82.8); PLATELET COUNT 198 10^3/uL (134-434); RBC 2.75 M/mm3 (4.00-5.60); RDW 16.5 % (11.9-15.9); WHITE BLOOD COUNT 5.7 K/mm3 (4.0-10.0)
[2023-10-08] MEDS: INSULIN ASPART SLIDING SCALE (NOVOLOG) 1 VIAL SQ SCH ×2 (08:09→18:06)
[2023-10-08] MEDS ORDERED: FAMOTIDINE 10 MG TABLET ONE (10:24)
[2023-10-08] MEDS: FAMOTIDINE 10 MG TABLET PO SCH (10:28)
[2023-10-08] MEDS: LOSARTAN POTASSIUM 50 MG TABLET PO SCH (10:28)
[2023-10-08] MEDS: amLODIPine BESYLATE 10 MG TABLET (FP) PO SCH (10:28)
[2023-10-08] MEDS: hydrALAZINE HCL 50 MG TABLET (FP) PO SCH ×2 (10:28→21:56)
[2023-10-08 10:41] LABS: RETICULOCYTES 0.72 % (0.5-1.5)
[2023-10-08 10:59] LABS: LDH 256 U/L (87-246); TOTAL IRON BINDING CAPACITY 287 ug/dL (250-450)
[2023-10-08 11:03] LABS: IRON SERUM 46 ug/dL (50-175)
[2023-10-08] MEDS ORDERED: LIDOCAINE HCL 1%, 10 MG/ML (20ML VIAL) ONE (12:16)
[2023-10-08] MEDS ORDERED: HEPARIN NA (PORCINE) 5,000 UNITS/ML 1ML VIAL ONE (12:16)
[2023-10-08] MEDS ORDERED: ONDANSETRON 4 MG/2 ML VIAL IVPUSH PRN ×2 (12:24→13:47)
[2023-10-08] MEDS ORDERED: MIDAZOLAM HCL 2 MG/2 ML SINGLE DOSE VIAL ONE ×2 (12:27→12:50)
[2023-10-08] MEDS: LIDOCAINE HCL 1%, 10 MG/ML (20ML VIAL) INF ONE ×2 (12:54)
[2023-10-08 13:27] LABS: ANION GAP 6 mmol/L (4-13); BLOOD UREA NITROGEN 64.5 mg/dL (7-18); CALCIUM 8.3 mg/dL (8.5-10.1); CHLORIDE 111 mmol/L (98-107); CO2 20 mmol/L (21-32); GLUCOSE,RANDOM 161 mg/dL (74-106); POTASSIUM 4.4 mmol/L (3.5-5.1); SODIUM 138 mmol/L (136-145)
[2023-10-08 13:31] LABS: CREATININE 7.7 mg/dL (0.55-1.3)
[2023-10-08] MEDS ORDERED: SODIUM BICARBONATE 650 MG TABLET PO SCH (14:00)
[2023-10-08 16:42] VITALS: BMI 23.1
[2023-10-08] MEDS: FUROSEMIDE 40 MG/4 ML INJECTABLE VIAL IVPUSH ONE (18:04)
[2023-10-08] MEDS: ACETAMINOPHEN 325 MG TABLET (FP) PO PRN (18:05)
[2023-10-08] MEDS ORDERED: NITROGLYCERIN SUBLINGUAL 1/150 0.4 MG TAB SL PRN (18:30)
[2023-10-08 19:07] LABS: CHOLESTEROL 82 mg/dL (50-200)
[2023-10-08 19:08] LABS: LDL CHOLESTEROL (ONLY SJRH) 29 mg/dL (5-100)
[2023-10-08 19:09] LABS: HDL CHOLESTEROL 59 mg/dL (40-60)
[2023-10-08 19:11] LABS: N-TERMINAL BNP 4071.1 pg/ml (5-125)
[2023-10-08] MEDS: SODIUM BICARBONATE 650 MG TABLET PO SCH (21:51)
[2023-10-08] MEDS ORDERED: ATORVASTATIN CA 20 MG TABLET (FP) ONE (21:53)
[2023-10-08] MEDS: ATORVASTATIN CA 40 MG TABLET (FP) PO SCH (21:56)
[2023-10-08] MEDS ORDERED: ATORVASTATIN CA 40 MG TABLET (FP) PO SCH (22:00)
[2023-10-08] MEDS ORDERED: hydrALAZINE HCL 50 MG TABLET (FP) PO SCH (22:00)
[2023-10-08] MEDS: FERROUS SO4 325 MG TABLET (FP) PO SCH ×2 (22:48→22:49)
[2023-10-09 07:20] LABS: HEMATOCRIT 21.3 % (35.4-49); MCH 25.9 pg (25.7-33.7); MEAN CELL VOLUME 78.4 fl (80-96); MEAN PLT VOLUME 8.8 fl (7.5-11.1); PLATELET COUNT 191 10^3/uL (134-434); RBC 2.72 M/mm3 (4.00-5.60); RDW 16.5 % (11.9-15.9); WHITE BLOOD COUNT 5.5 K/mm3 (4.0-10.0)
[2023-10-09 07:31] LABS: CHLORIDE 112 mmol/L (98-107); POTASSIUM 4.5 mmol/L (3.5-5.1); SODIUM 139 mmol/L (136-145)
[2023-10-09 07:33] LABS: ANION GAP 8 mmol/L (4-13); BLOOD UREA NITROGEN 63.6 mg/dL (7-18); CO2 19 mmol/L (21-32); GLUCOSE,RANDOM 149 mg/dL (74-106)
[2023-10-09 07:42] LABS: CREATININE 7.7 mg/dL (0.55-1.3)
[2023-10-09] MEDS: amLODIPine BESYLATE 10 MG TABLET (FP) PO SCH (09:21)
[2023-10-09] MEDS: LOSARTAN POTASSIUM 50 MG TABLET PO SCH (09:21)
[2023-10-09] MEDS: FERROUS SO4 325 MG TABLET (FP) PO SCH (12:24)
[2023-10-09] MEDS: IRON SUCROSE INJECTION 100 MG in SODIUM CHLORIDE 95 ML IVPB ONE (18:01)
[2023-10-09] MEDS: EPOETIN ALFA-EPBX 10,000 UNIT/ML VIAL SQ ONE (18:03)
[2023-10-10] MEDS ORDERED: SODIUM CHLORIDE 250 ML IV PRN ×2 (12:12→12:13)
[2023-10-10 14:00] LABS: HEMATOCRIT 22.3 % (35.4-49); HEMOGLOBIN 7.2 GM/dL (11.7-16.9); MCH 25.6 pg (25.7-33.7); MCHC 32.4 g/dl (32.0-35.9); MEAN PLT VOLUME 9.2 fl (7.5-11.1); PLATELET COUNT 184 10^3/uL (134-434); RBC 2.83 M/mm3 (4.00-5.60); RDW 16.3 % (11.9-15.9); WHITE BLOOD COUNT 5.7 K/mm3 (4.0-10.0)
[2023-10-10] MEDS: EPOETIN ALFA-EPBX 10,000 UNIT/ML VIAL SQ ONE (14:02)
[2023-10-10 14:15] LABS: POTASSIUM 3.9 mmol/L (3.5-5.1)
[2023-10-10 14:18] LABS: ALBUMIN 3.1 g/dl (3.4-5.0); BLOOD UREA NITROGEN 40.7 mg/dL (7-18); CALCIUM 8.5 mg/dL (8.5-10.1)
[2023-10-10 14:21] LABS: CREATININE 6.1 mg/dL (0.55-1.3)
[2023-10-10 14:23] LABS: BILIRUBIN,TOTAL 0.3 mg/dL (0.2-1); TOT PROT 6.7 g/dl (6.4-8.2)
[2023-10-10] MEDS: amLODIPine BESYLATE 10 MG TABLET (FP) PO SCH (15:58)
[2023-10-10] MEDS: LOSARTAN POTASSIUM 50 MG TABLET PO SCH (15:58)
[2023-10-10] MEDS: CLOPIDOGREL BISULFATE 75 MG TABLET (FP) PO SCH ×2 (15:58→15:59)
[2023-10-10] MEDS: ASPIRIN 81 MG CHEWABLE TABLETS PO SCH ×2 (15:58→15:59)
[2023-10-10] MEDS: IRON SUCROSE INJECTION 100 MG in SODIUM CHLORIDE 95 ML IVPB ONE (16:01)
[2023-10-10] MEDS: FAMOTIDINE 10 MG TABLET PO SCH (16:04)
[2023-10-11] MEDS: DOCUSATE SODIUM 100 MG CAPSULE (FP) PO PRN (12:51)
[2023-10-11] MEDS ORDERED: INSULIN (NOVOLOG MIX 70/30) 100 UNITS/ML MDV SQ ONE (21:05)
[2023-10-12] MEDS ORDERED: INSULIN (NOVOLOG) ASPART 100 UNITS/ML 10ML VIAL ONE (05:06)
[2023-10-12] MEDS ORDERED: SODIUM CHLORIDE 250 ML IV PRN (15:45)
[2023-10-12 16:16] LABS: HEMATOCRIT 22.4 % (35.4-49); HEMOGLOBIN 7.3 GM/dL (11.7-16.9); MCH 25.6 pg (25.7-33.7); MCHC 32.4 g/dl (32.0-35.9); MEAN CELL VOLUME 78.8 fl (80-96); MEAN PLT VOLUME 9.1 fl (7.5-11.1); PLATELET COUNT 169 10^3/uL (134-434); RBC 2.84 M/mm3 (4.00-5.60); RDW 16.4 % (11.9-15.9); WHITE BLOOD COUNT 6.7 K/mm3 (4.0-10.0)
[2023-10-12 16:41] LABS: POTASSIUM 4.1 mmol/L (3.5-5.1)
[2023-10-12 16:42] LABS: CALCIUM 8.6 mg/dL (8.5-10.1)
[2023-10-12 16:43] LABS: BLOOD UREA NITROGEN 39.3 mg/dL (7-18)
[2023-10-12 16:46] LABS: CREATININE 6.2 mg/dL (0.55-1.3)
[2023-10-12] MEDS: EPOETIN ALFA-EPBX 4,000 UNIT/ML VIAL SQ ONE (17:00)
[2023-10-12] MEDS: IRON SUCROSE INJECTION 100 MG in SODIUM CHLORIDE 95 ML IVPB ONE (17:40)
[2023-10-13] MEDS: FUROSEMIDE 40 MG TABLET (FP) PO ONE (13:13)
[2023-10-13] MEDS ORDERED: INSULIN (NOVOLOG) ASPART 100 UNITS/ML 10ML VIAL ONE (21:16)
[2023-10-14 10:25] VITALS: BP 156/77; PULSE 60; RESP 18; TEMP 98.3
[2023-10-14] MEDS ORDERED: INSULIN (NOVOLOG) ASPART 100 UNITS/ML 10ML VIAL ONE (11:22)
== END 2023-10-14 13:25 | disposition home or self-care (01) | DRG 470 ==
LOC: JER 17:49 → JERBED 10-08 01:47 → MERGE 10-08 01:47 → J4W 10-08 16:03 → OBSVTOIN 10-09 10:18 → J4W 10-10 11:53
PROVIDERS: ADMIT Internal Medicine; ATTEND Family Medicine
PROC: B548ZZA Ultrasonography of Superior Vena Cava, Guidance (ICD-10-PCS; 2023-10-08)
PROC: 02H633Z Insertion of Infusion Device into Right Atrium, Percutaneous Approach (ICD-10-PCS; principal; 2023-10-08 11:30)
DX: I12.0 Hypertensive chronic kidney disease with stage 5 chronic kidney disease or end stage renal disease (principal); I25.10 Atherosclerotic heart disease of native coronary artery without angina pectoris; D64.9 Anemia, unspecified; E11.22 Type 2 diabetes mellitus with diabetic chronic kidney disease; N18.6 End stage renal disease; Z99.2 Dependence on renal dialysis; Z79.4 Long term (current) use of insulin
CPT/HCPCS: 36415; 36430; 71045-TC-FY; 71046-TC-FY; 76000-TC-FY; 80048; 80053; 80061; 82728; 82962; 83036; 83540; 83550; 83615; 83735; 83880; 84484; 85025; 85027; 85045; 85610; 85730; 86704; 86803; 86850; 86900; 86901; 86922; 87340; 87517; 87635; 93005; 93010; 93986; 94760; 99285-25; C1750; G0378; J1644; J1756; P9058; Q5106

== ENCOUNTER 2024-03-02 04:17 | Day surgery (SDC) | payer OTHER ==
[2024-01-01 12:45] VITALS: BMI 23.7
[2024-03-02] MEDS ORDERED: DEXMEDETOMIDINE HCL 200 MCG/2 ML IVPB ONE (07:14)
[2024-03-02] MEDS ORDERED: MIDAZOLAM HCL 2 MG/2 ML SINGLE DOSE VIAL ONE (07:15)
[2024-03-02] MEDS ORDERED: PROPOFOL 20 ML ONE (07:15)
[2024-03-02] MEDS ORDERED: LIDOCAINE HCL/PF 2% SDV 5ML VIAL ONE (07:15)
[2024-03-02] MEDS ORDERED: POVIDONE-IODINE OINTMENT 10% - 28.4 GM TUBE ONE (07:19)
[2024-03-02] MEDS ORDERED: LIDOCAINE HCL 1%, 10 MG/ML (20ML VIAL) ONE (07:19)
[2024-03-02] MEDS ORDERED: HEPARIN NA (PORCINE) 5,000 UNITS/ML 1ML VIAL ONE (07:20)
[2024-03-02] MEDS ORDERED: PAPAVERINE HCL 30 MG/1 ML 10 ML VIAL NR ONE (07:20)
[2024-03-02] MEDS ORDERED: ceFAZolin SODIUM 1 GM VIAL ONE (08:01)
[2024-03-02] MEDS ORDERED: DEXAMETHASONE SOD PHOSPHATE 4 MG/1 ML VIAL ONE (08:01)
[2024-03-02] MEDS ORDERED: KETOROLAC TROMETHAMINE 30 MG/1 ML VIAL ONE (08:01)
[2024-03-02] MEDS ORDERED: ONDANSETRON 4 MG/2 ML VIAL ONE (08:01)
[2024-03-02] MEDS: ceFAZolin SODIUM 1 GM VIAL IVPB ONE (08:03)
[2024-03-02] MEDS: LIDOCAINE HCL 1%, 10 MG/ML (20ML VIAL) NR ONE (08:14)
[2024-03-02] MEDS: LIDOCAINE HCL 1% PRESERVATIVE FREE - 30ML VIAL IJ ONE ×2 (08:14)
[2024-03-02] MEDS: POVIDONE-IODINE OINTMENT 10% - 28.4 GM TUBE TP ONE (08:30)
[2024-03-02] MEDS ORDERED: PROMETHAZINE HCL 25 MG/1 ML VIAL IVPB PRN (08:32)
[2024-03-02] MEDS ORDERED: oxyCODONE HCL 5 MG TABLET PO PRN ×2 (08:32)
[2024-03-02] MEDS ORDERED: ONDANSETRON 4 MG/2 ML VIAL IVPUSH PRN (08:32)
[2024-03-02] MEDS ORDERED: LACTATED RINGERS SOLUTION 1,000 ML IV SCH (08:45)
[2024-03-02] MEDS ORDERED: hydrALAZINE HCL 20 MG/ML VIAL ONE (09:18)
[2024-03-02] MEDS: hydrALAZINE HCL 20 MG/ML VIAL IVPUSH PRN (09:19)
[2024-03-02] MEDS ORDERED: ACETAMINOPHEN INJECTION 100 ML IVPB ONE (09:25)
[2024-03-02] MEDS: ACETAMINOPHEN 1000 MG/100 ML BAG IVPB ONE (09:29)
[2024-03-02 13:31] VITALS: BP 137/69; PULSE 62; RESP 18; TEMP 97.8
== END 2024-03-02 16:31 | disposition home or self-care (01) ==
LOC: JASU-SURG 04:17
PROVIDERS: ATTEND Surgery
PROC: 03180ZD Bypass Left Brachial Artery to Upper Arm Vein, Open Approach (ICD-10-PCS; principal; 2024-03-02 08:00)
DX: I12.0 Hypertensive chronic kidney disease with stage 5 chronic kidney disease or end stage renal disease (principal); E11.22 Type 2 diabetes mellitus with diabetic chronic kidney disease; N18.6 End stage renal disease; Z79.4 Long term (current) use of insulin
CPT/HCPCS: 82962; 94760; J0131; J1644

== ENCOUNTER 2024-05-25 04:11 | Day surgery (SDC) | payer OTHER ==
[2024-05-25] MEDS ORDERED: HEPARIN NA (PORCINE) 5,000 UNITS/ML 1ML VIAL ONE (07:06)
[2024-05-25] MEDS ORDERED: LIDOCAINE HCL 1%, 10 MG/ML (20ML VIAL) ONE (07:06)
[2024-05-25] MEDS ORDERED: POVIDONE-IODINE OINTMENT 10% - 28.4 GM TUBE ONE (07:06)
[2024-05-25] MEDS ORDERED: ONDANSETRON 4 MG/2 ML VIAL IVPUSH PRN (07:12)
[2024-05-25 07:23] LABS: HEMATOCRIT 45.1 % (35.4-49); HEMOGLOBIN 14.3 GM/dL (11.7-16.9); MCH 26.1 pg (25.7-33.7); MCHC 31.8 g/dl (32.0-35.9); MEAN CELL VOLUME 82.2 fl (80-96); MEAN PLT VOLUME 8.9 fl (7.5-11.1); PLATELET COUNT 156 10^3/uL (134-434); RBC 5.49 M/mm3 (4.00-5.60); RDW 18.9 % (11.9-15.9); WHITE BLOOD COUNT 5.1 K/mm3 (4.0-10.0)
[2024-05-25] MEDS ORDERED: PROPOFOL 20 ML ONE ×3 (07:24→09:54)
[2024-05-25] MEDS ORDERED: MIDAZOLAM HCL 2 MG/2 ML SINGLE DOSE VIAL ONE (07:25)
[2024-05-25] MEDS ORDERED: DEXMEDETOMIDINE HCL 200 MCG/2 ML IVPB ONE (07:27)
[2024-05-25] MEDS ORDERED: ROPIVACAINE HCL 0.5% 30ML VIAL ONE (07:27)
[2024-05-25] MEDS ORDERED: ACETAMINOPHEN INJECTION 100 ML ONE (07:27)
[2024-05-25 07:47] LABS: POTASSIUM 4.5 mmol/L (3.5-5.1)
[2024-05-25 07:49] LABS: CALCIUM 9.1 mg/dL (8.5-10.1)
[2024-05-25 07:50] LABS: ALBUMIN 3.5 g/dl (3.4-5.0); BLOOD UREA NITROGEN 35.8 mg/dL (7-18)
[2024-05-25 07:53] LABS: CREATININE 5.7 mg/dL (0.55-1.3)
[2024-05-25 07:54] LABS: BILIRUBIN,TOTAL 0.4 mg/dL (0.2-1); TOT PROT 7.4 g/dl (6.4-8.2)
[2024-05-25] MEDS ORDERED: ONDANSETRON 4 MG/2 ML VIAL ONE (08:21)
[2024-05-25] MEDS ORDERED: ceFAZolin SODIUM 1 GM VIAL ONE (08:21)
[2024-05-25] MEDS: ceFAZolin SODIUM 1 GM VIAL IVPB ONE ×2 (08:28)
[2024-05-25] MEDS: LIDOCAINE HCL 1%, 10 MG/ML (20ML VIAL) NR ONE (08:38)
[2024-05-25] MEDS: POVIDONE-IODINE OINTMENT 10% - 28.4 GM TUBE TP ONE ×2 (10:15)
[2024-05-25] MEDS ORDERED: NITROGLYCERIN SUBLINGUAL 1/150 0.4 MG TAB SL PRN (16:36)
[2024-05-25] MEDS ORDERED: oxyCODONE HCL 5 MG TABLET PO PRN (16:36)
[2024-05-25] MEDS: LACTATED RINGERS SOLUTION 1,000 ML IV SCH (16:37)
[2024-05-25] MEDS ORDERED: amLODIPine BESYLATE 10 MG TABLET (FP) PO SCH (16:59)
[2024-05-25 17:41] VITALS: RESP 18
[2024-05-25] MEDS: LOSARTAN POTASSIUM 50 MG TABLET PO SCH (18:47)
[2024-05-25] MEDS: ACETAMINOPHEN 500 MG TABLET (FP) PO SCH (18:48)
[2024-05-25] MEDS: hydrALAZINE HCL 50 MG TABLET (FP) PO SCH (22:26)
[2024-05-25] MEDS: SODIUM BICARBONATE 650 MG TABLET PO SCH (22:27)
[2024-05-25] MEDS: ATORVASTATIN CA 80 MG TABLET (FP) PO SCH (22:27)
[2024-05-26] MEDS: EMPAGLIFLOZIN (JARDIANCE) 10 MG TABLET PO SCH (06:17)
[2024-05-26] MEDS: INSULIN (NOVOLOG MIX 70/30) 100 UNITS/ML MDV SQ SCH ×2 (06:17→06:18)
[2024-05-26] MEDS ORDERED: SODIUM CHLORIDE 250 ML IV PRN (07:50)
[2024-05-26] MEDS: amLODIPine BESYLATE 10 MG TABLET (FP) PO SCH ×2 (08:51→13:09)
[2024-05-26 09:57] VITALS: TEMP 98
[2024-05-26] MEDS: ASPIRIN COATED 81 MG TABLET.EC PO SCH (13:07)
[2024-05-26] MEDS: FAMOTIDINE 10 MG TABLET PO SCH (13:07)
[2024-05-26] MEDS: CLOPIDOGREL BISULFATE 75 MG TABLET (FP) PO SCH (13:10)
[2024-05-26 15:43] VITALS: BP 152/97; PULSE 74
[2024-05-26 16:23] VITALS: BMI 25.5
== END 2024-05-26 15:15 | disposition home or self-care (01) ==
LOC: JASU-SURG 04:11 → JASUSAT 04:11 → J8W 17:03 → JASUSAT 05-26 15:15
PROVIDERS: ATTEND Surgery
PROC: 05WY03Z Revision of Infusion Device in Upper Vein, Open Approach (ICD-10-PCS; principal; 2024-05-25 08:00)
DX: N18.6 End stage renal disease (principal)
CPT/HCPCS: 36415; 80053; 82962; 85027; 86705; 86803; 87340; 87517; 94760; J0131; J1644

== ENCOUNTER 2024-07-06 04:50 | Day surgery (SDC) | payer OTHER ==
[2024-07-04 15:56] VITALS: BMI 23.6
[2024-07-06] MEDS ORDERED: SODIUM CHLORIDE 250 ML IV PRN (08:06)
[2024-07-06] MEDS ORDERED: HEPARIN NA (PORCINE) 5,000 UNITS/ML 1ML VIAL ONE (09:28)
[2024-07-06] MEDS ORDERED: LIDOCAINE HCL 1%, 10 MG/ML (20ML VIAL) ONE (09:28)
[2024-07-06] MEDS ORDERED: ONDANSETRON 4 MG/2 ML VIAL IVPUSH PRN (09:59)
[2024-07-06] MEDS ORDERED: MIDAZOLAM HCL 2 MG/2 ML SINGLE DOSE VIAL ONE (10:05)
[2024-07-06] MEDS ORDERED: PROPOFOL 20 ML ONE (10:27)
[2024-07-06] MEDS ORDERED: ONDANSETRON 4 MG/2 ML VIAL ONE (10:36)
[2024-07-06] MEDS: LIDOCAINE HCL 1%, 10 MG/ML (20ML VIAL) NR ONE ×2 (10:42)
[2024-07-06] MEDS ORDERED: NITROGLYCERIN SUBLINGUAL 1/150 0.4 MG TAB SL PRN (11:10)
[2024-07-06] MEDS: LACTATED RINGERS SOLUTION 1,000 ML IV SCH (11:12)
[2024-07-06] MEDS: ERGOCALCIFEROL (VIT D2) 50,000 UNIT (1.25 MG) CAPSULE PO SCH (13:49)
[2024-07-06 15:16] VITALS: RESP 18
[2024-07-06] MEDS: hydrALAZINE HCL 10 MG TABLET PO SCH (21:32)
[2024-07-06] MEDS: ATORVASTATIN CA 80 MG TABLET (FP) PO SCH (21:32)
[2024-07-06] MEDS ORDERED: SODIUM BICARBONATE 650 MG TABLET PO SCH (22:00)
[2024-07-07 06:51] VITALS: TEMP 98.4
[2024-07-07] MEDS: HEPARIN NA (PORCINE) 5,000 UNITS/ML 1ML VIAL IVPUSH ONE (08:00)
[2024-07-07 08:35] LABS: HEMATOCRIT 37.1 % (35.4-49); HEMOGLOBIN 11.9 GM/dL (11.7-16.9); MCH 25.9 pg (25.7-33.7); MCHC 32.2 g/dl (32.0-35.9); MEAN CELL VOLUME 80.6 fl (80-96); MEAN PLT VOLUME 9.4 fl (7.5-11.1); PLATELET COUNT 160 10^3/uL (134-434); RBC 4.61 M/mm3 (4.00-5.60); WHITE BLOOD COUNT 5.7 K/mm3 (4.0-10.0)
[2024-07-07 09:01] LABS: CHLORIDE 102 mmol/L (98-107); POTASSIUM 4.2 mmol/L (3.5-5.1); SODIUM 136 mmol/L (136-145)
[2024-07-07 09:07] LABS: ALBUMIN 3.2 g/dl (3.4-5.0); CALCIUM 8.8 mg/dL (8.5-10.1)
[2024-07-07 09:08] LABS: ANION GAP 10 mmol/L (4-13); CO2 24 mmol/L (21-32); GLUCOSE,RANDOM 142 mg/dL (74-106)
[2024-07-07 09:09] LABS: SGPT/ALT 19 U/L (13-61)
[2024-07-07 09:10] LABS: SGOT/AST 16 U/L (15-37)
[2024-07-07 09:11] LABS: ALK PHOS 87 U/L (45-117); BILIRUBIN,TOTAL 0.3 mg/dL (0.2-1); TOT PROT 6.7 g/dl (6.4-8.2)
[2024-07-07 10:54] VITALS: PULSE 80
[2024-07-07 10:57] VITALS: BP 151/97
[2024-07-07] MEDS: LOSARTAN POTASSIUM 50 MG TABLET PO SCH (11:42)
[2024-07-07] MEDS: ASPIRIN COATED 81 MG TABLET.EC PO SCH (11:43)
[2024-07-07] MEDS: FAMOTIDINE 40 MG TABLET PO SCH (11:43)
[2024-07-07] MEDS: CLOPIDOGREL BISULFATE 75 MG TABLET (FP) PO SCH (11:43)
[2024-07-07] MEDS: amLODIPine BESYLATE 10 MG TABLET (FP) PO SCH (11:43)
== END 2024-07-07 12:01 | disposition home or self-care (01) ==
LOC: JASUSAT 04:50 → J8W 12:24 → JASUSAT 07-07 12:01
PROVIDERS: ATTEND Surgery
PROC: 05763ZZ Dilation of Left Subclavian Vein, Percutaneous Approach (ICD-10-PCS; principal; 2024-07-06 09:30)
DX: T82.858A Stenosis of other vascular prosthetic devices, implants and grafts, initial encounter (principal); I12.0 Hypertensive chronic kidney disease with stage 5 chronic kidney disease or end stage renal disease; E11.22 Type 2 diabetes mellitus with diabetic chronic kidney disease; N18.6 End stage renal disease; Z99.2 Dependence on renal dialysis
CPT/HCPCS: 36415; 76000-TC-FY; 80053; 82962; 85027; 87340; 94760; J1644

== ENCOUNTER 2025-01-31 07:17 | Inpatient (IN) | payer OTHER ==
[2025-01-31 09:56] LABS: ACTIVATED PTT 30.2 SECONDS (25.2-36.5)
[2025-01-31 10:06] LABS: CHLORIDE 102 mmol/L (98-107); POTASSIUM 4.9 mmol/L (3.5-5.1); SODIUM 137 mmol/L (136-145)
[2025-01-31 10:08] LABS: CALCIUM 10.3 mg/dL (8.5-10.1)
[2025-01-31 10:09] LABS: ALBUMIN 4.2 g/dl (3.4-5.0); ANION GAP 8 mmol/L (4-13); BLOOD UREA NITROGEN 42.6 mg/dL (7-18); CO2 27 mmol/L (21-32); GLUCOSE,RANDOM 72 mg/dL (74-106); MAGNESIUM 2.4 mg/dL (1.8-2.4)
[2025-01-31 10:12] LABS: PHOSPHOROUS 5.5 mg/dL (2.5-4.9); SGOT/AST 16 U/L (15-37); SGPT/ALT 19 U/L (13-61)
[2025-01-31 10:13] LABS: BILIRUBIN,TOTAL 0.5 mg/dL (0.2-1); TOT PROT 8.8 g/dl (6.4-8.2)
[2025-01-31 10:14] LABS: ALK PHOS 85 U/L (45-117)
[2025-01-31 10:17] LABS: CREATININE 10.2 mg/dL (0.55-1.3)
[2025-01-31 10:34] LABS: ABSOLUTE IMMATURE GRANULOCYTES 0.01 x10^3/uL (0.0-0.031); BASOPHILS # 0.02 x10^3/uL (0.01-0.08); EOSINOPHIL % 2.6 % (0.8-7.0); EOSINOPHILS # 0.18 x10^3/uL (0.04-0.54); HEMOGLOBIN 12.5 g/dL (13.7-17.5); MCHC 30.5 g/dl (32.3-36.5); MEAN CELL VOLUME 86.3 fl (79.0-92.2); MEAN PLT VOLUME 11.5 fl (9.4-12.4); MONOCYTE # 0.73 x10^3/uL (0.30-0.82); MONOCYTE % 10.4 % (5.3-12.2); PLATELET COUNT 228 x10^3/uL (163-337)
[2025-01-31 11:54] VITALS: BMI 24.6
[2025-01-31] MEDS: CARVEDILOL 25 MG TABLET (FP) PO SCH ×2 (13:50→21:37)
[2025-01-31] MEDS: hydrALAZINE HCL 50 MG TABLET (FP) PO SCH ×2 (13:50→21:37)
[2025-01-31] MEDS ORDERED: SEVOFLURANE 250 ML BTL ONE (14:33)
[2025-01-31] MEDS ORDERED: PROPOFOL 20 ML ONE (14:38)
[2025-01-31] MEDS ORDERED: DEXAMETHASONE SOD PHOSPHATE 4 MG/1 ML VIAL ONE (14:39)
[2025-01-31] MEDS ORDERED: ONDANSETRON 4 MG/2 ML VIAL ONE (14:39)
[2025-01-31] MEDS ORDERED: LIDOCAINE HCL/PF 2% SDV 5ML VIAL ONE (14:39)
[2025-01-31] MEDS ORDERED: MIDAZOLAM HCL 2 MG/2 ML SINGLE DOSE VIAL ONE (14:40)
[2025-01-31] MEDS ORDERED: PROPOFOL 60 ML ONE (15:13)
[2025-01-31] MEDS ORDERED: HEPARIN NA (PORCINE) 5,000 UNITS/ML 1ML VIAL ONE (15:16)
[2025-01-31] MEDS ORDERED: KETAMINE HCL 200 MG/20 ML VIAL ONE (15:23)
[2025-01-31] MEDS ORDERED: GLYCOPYRROLATE 0.2 MG/1 ML VIAL ONE (15:24)
[2025-01-31] MEDS: LIDOCAINE HCL 1%, 10 MG/ML (20ML VIAL) NR ONE ×2 (15:28)
[2025-01-31] MEDS ORDERED: ACETAMINOPHEN INJECTION 100 ML ONE (16:12)
[2025-01-31] MEDS ORDERED: SODIUM CHLORIDE 1,000 ML IV SCH (16:30)
[2025-01-31] MEDS ORDERED: oxyCODONE HCL 5 MG TABLET PO PRN (16:46)
[2025-01-31 17:53] VITALS: RESP 18
[2025-01-31] MEDS: HEPARIN NA (PORCINE) 5,000 UNITS/ML 1ML VIAL IVPUSH ONE (18:05)
[2025-01-31] MEDS ORDERED: SODIUM CHLORIDE 250 ML IV PRN (18:21)
[2025-01-31 19:04] LABS: HEPATITIS B SURF AG NON-MATERN NON-REACTIVE (NONREACTIVE)
[2025-01-31 19:32] LABS: HCV DIAGNOSTIC IN-HOUSE W/RFLX NON-REACTIVE (NONREACTIVE)
[2025-01-31] MEDS: ATORVASTATIN CA 80 MG TABLET (FP) PO SCH (21:37)
[2025-01-31] MEDS ORDERED: ATORVASTATIN CA 80 MG TABLET (FP) PO SCH (22:00)
[2025-01-31] MEDS: SODIUM CHLORIDE 1,000 ML IV SCH (22:45)
[2025-02-01] MEDS: INSULIN ASPART SLIDING SCALE (NOVOLOG) 1 VIAL SQ SCH (06:42)
[2025-02-01] MEDS: amLODIPine BESYLATE 10 MG TABLET (FP) PO SCH (09:45)
[2025-02-01] MEDS ORDERED: amLODIPine BESYLATE 10 MG TABLET (FP) PO SCH (10:00)
[2025-02-01 11:36] VITALS: BP 117/57; PULSE 69; TEMP 98.1
== END 2025-02-01 11:21 | disposition home or self-care (01) | DRG 252 ==
LOC: JER 07:17 → JERBED 08:12 → OBSVTOIN 10:08 → J5S 10:32
PROVIDERS: ADMIT Internal Medicine; ATTEND Internal Medicine
PROC: 057Y3DZ Dilation of Upper Vein with Intraluminal Device, Percutaneous Approach (ICD-10-PCS; 2025-01-31)
PROC: 5A1D70Z Performance of Urinary Filtration, Intermittent, Less than 6 Hours Per Day (ICD-10-PCS; 2025-01-31)
PROC: 05CY3ZZ Extirpation of Matter from Upper Vein, Percutaneous Approach (ICD-10-PCS; principal; 2025-01-31 16:30)
DX: T82.868A Thrombosis due to vascular prosthetic devices, implants and grafts, initial encounter (principal); N18.6 End stage renal disease; I12.0 Hypertensive chronic kidney disease with stage 5 chronic kidney disease or end stage renal disease; E11.22 Type 2 diabetes mellitus with diabetic chronic kidney disease; Z99.2 Dependence on renal dialysis; I25.10 Atherosclerotic heart disease of native coronary artery without angina pectoris; E78.5 Hyperlipidemia, unspecified; Y83.8 Other surgical procedures as the cause of abnormal reaction of the patient, or of later complication, without mention of misadventure at the time of the procedure; F41.9 Anxiety disorder, unspecified; Z95.5 Presence of coronary angioplasty implant and graft
CPT/HCPCS: 36415; 76000-TC-FY; 80053; 82962; 83735; 84100; 85025; 85610; 85730; 86704; 86803; 86850; 86900; 86901; 87340; 87517; 93005; 93010; 94760; 99285-25; C1757; C1769; C1876; G0378; J2997

== ENCOUNTER 2025-06-23 07:40 | Inpatient (IN) | payer OTHER ==
[2025-06-23 07:49] VITALS: BMI 24.0
[2025-06-23 08:42] LABS: ABSOLUTE IMMATURE GRANULOCYTES 0.02 x10^3/uL (0.0-0.031); BASOPHILS # 0.03 x10^3/uL (0.01-0.08); EOSINOPHIL % 0.4 % (0.8-7.0); EOSINOPHILS # 0.04 x10^3/uL (0.04-0.54); MCHC 31.4 g/dl (32.3-36.5); MEAN CELL VOLUME 85.5 fl (79.0-92.2); MEAN PLT VOLUME 11.8 fl (9.4-12.4); MONOCYTE # 0.74 x10^3/uL (0.30-0.82); MONOCYTE % 8.0 % (5.3-12.2); RDW 15.7 % (12.2-16.4)
[2025-06-23 08:57] LABS: GLUCOSE,RANDOM 153 mg/dL (74-106)
[2025-06-23 08:58] LABS: TOT PROT 9.2 g/dl (6.4-8.2)
[2025-06-23 08:59] LABS: CO2 15 mmol/L (21-32)
[2025-06-23 09:00] LABS: ALK PHOS 91 U/L (40-150)
[2025-06-23 09:03] LABS: CREATININE 8.27 mg/dL (0.55-1.3); SGOT/AST 27 U/L (5-34); SGPT/ALT 24 U/L (0-55)
[2025-06-23 09:45] LABS: GLUCOSE,RANDOM 143 mg/dL (74-106)
[2025-06-23 09:47] LABS: CO2 18 mmol/L (21-32)
[2025-06-23 09:51] LABS: CREATININE 8.53 mg/dL (0.55-1.3)
[2025-06-23 10:40] VITALS: RESP 18
[2025-06-23] MEDS ORDERED: SODIUM CHLORIDE 250 ML IV PRN (14:26)
[2025-06-23] MEDS: SODIUM ZIRCONIUM CYCLOSILICATE (LOKELMA) 5 GM PACKET PO SCH (14:52)
[2025-06-23] MEDS: SODIUM CHLORIDE 0.45% 1,000 ML IV SCH ×2 (14:53→15:00)
[2025-06-23 15:29] LABS: HCV DIAGNOSTIC IN-HOUSE W/RFLX NON-REACTIVE (NONREACTIVE)
[2025-06-23 16:11] LABS: HEPATITIS B SURFACE AG MATERN NON-REACTIVE (NONREACTIVE)
[2025-06-24 09:09] LABS: ABSOLUTE IMMATURE GRANULOCYTES 0.02 x10^3/uL (0.0-0.031); BASOPHILS # 0.03 x10^3/uL (0.01-0.08); EOSINOPHIL % 0.3 % (0.8-7.0); EOSINOPHILS # 0.03 x10^3/uL (0.04-0.54); MCHC 30.8 g/dl (32.3-36.5); MEAN CELL VOLUME 83.9 fl (79.0-92.2); MEAN PLT VOLUME 12.2 fl (9.4-12.4); MONOCYTE # 0.90 x10^3/uL (0.30-0.82); MONOCYTE % 9.6 % (5.3-12.2); RDW 15.9 % (12.2-16.4)
[2025-06-24 09:24] LABS: GLUCOSE,RANDOM 103 mg/dL (74-106)
[2025-06-24 09:25] LABS: TOT PROT 8.3 g/dl (6.4-8.2)
[2025-06-24 09:26] LABS: CO2 13 mmol/L (21-32)
[2025-06-24 09:27] LABS: ALK PHOS 94 U/L (40-150)
[2025-06-24 09:30] LABS: SGOT/AST 20 U/L (5-34); SGPT/ALT 23 U/L (0-55)
[2025-06-24 09:31] LABS: CREATININE 11.85 mg/dL (0.55-1.3)
[2025-06-24] MEDS: SODIUM BICARBONATE 650 MG TABLET PO SCH (21:20)
[2025-06-24] MEDS: ATORVASTATIN CA 80 MG TABLET (FP) PO SCH (21:20)
[2025-06-25 08:32] LABS: ABSOLUTE IMMATURE GRANULOCYTES 0.01 x10^3/uL (0.0-0.031); BASOPHILS # 0.03 x10^3/uL (0.01-0.08); EOSINOPHIL % 0.9 % (0.8-7.0); EOSINOPHILS # 0.06 x10^3/uL (0.04-0.54); MCHC 32.4 g/dl (32.3-36.5); MEAN CELL VOLUME 83.4 fl (79.0-92.2); MONOCYTE # 0.88 x10^3/uL (0.30-0.82); MONOCYTE % 13.4 % (5.3-12.2); RDW 15.3 % (12.2-16.4)
[2025-06-25 08:41] LABS: GLUCOSE,RANDOM 149 mg/dL (74-106); TOT PROT 7.1 g/dl (6.4-8.2)
[2025-06-25 08:42] LABS: CO2 27 mmol/L (21-32)
[2025-06-25 08:43] LABS: ALK PHOS 81 U/L (40-150)
[2025-06-25 08:46] LABS: CREATININE 8.74 mg/dL (0.55-1.3); SGOT/AST 22 U/L (5-34); SGPT/ALT 20 U/L (0-55)
[2025-06-25] MEDS: CLOPIDOGREL BISULFATE 75 MG TABLET (FP) PO SCH (09:54)
[2025-06-25] MEDS: ASPIRIN COATED 81 MG TABLET.EC PO SCH (09:54)
[2025-06-25] MEDS ORDERED: SODIUM CHLORIDE 250 ML IV PRN (22:06)
[2025-06-26 10:21] LABS: ABSOLUTE IMMATURE GRANULOCYTES 0.01 x10^3/uL (0.0-0.031); BASOPHILS # 0.02 x10^3/uL (0.01-0.08); EOSINOPHIL % 1.5 % (0.8-7.0); EOSINOPHILS # 0.10 x10^3/uL (0.04-0.54); MCHC 32.6 g/dl (32.3-36.5); MEAN CELL VOLUME 82.3 fl (79.0-92.2); MEAN PLT VOLUME 12.3 fl (9.4-12.4); MONOCYTE # 0.86 x10^3/uL (0.30-0.82); MONOCYTE % 13.1 % (5.3-12.2); RDW 15.0 % (12.2-16.4)
[2025-06-26 10:44] LABS: GLUCOSE,RANDOM 225 mg/dL (74-106); TOT PROT 6.6 g/dl (6.4-8.2)
[2025-06-26 10:45] LABS: CO2 26 mmol/L (21-32)
[2025-06-26 10:47] LABS: ALK PHOS 72 U/L (40-150)
[2025-06-26 10:49] LABS: SGOT/AST 20 U/L (5-34); SGPT/ALT 22 U/L (0-55)
[2025-06-26 10:50] LABS: CREATININE 10.29 mg/dL (0.55-1.3)
[2025-06-27 09:56] VITALS: TEMP 98
[2025-06-27 13:11] VITALS: BP 110/97; PULSE 80
[2025-06-27] MEDS: CARVEDILOL 25 MG TABLET (FP) PO SCH (13:18)
== END 2025-06-27 14:33 | disposition left against medical advice (07) | DRG 391 ==
LOC: JER 07:40 → JERBED 08:07 → J5S 10:25
PROVIDERS: ADMIT Internal Medicine; ATTEND Internal Medicine
PROC: 5A1D70Z Performance of Urinary Filtration, Intermittent, Less than 6 Hours Per Day (ICD-10-PCS; principal; 2025-06-23)
DX: R19.7 Diarrhea, unspecified (principal); N18.6 End stage renal disease; I12.0 Hypertensive chronic kidney disease with stage 5 chronic kidney disease or end stage renal disease; E11.22 Type 2 diabetes mellitus with diabetic chronic kidney disease; Z99.2 Dependence on renal dialysis; I25.10 Atherosclerotic heart disease of native coronary artery without angina pectoris; E78.5 Hyperlipidemia, unspecified; E87.5 Hyperkalemia; D63.1 Anemia in chronic kidney disease
CPT/HCPCS: 36415; 71045-TC-FY; 74019-TC-FY; 74176-TC; 74177-TC; 80048; 80053; 82803; 82962; 83036; 83605; 83735; 84100; 85025; 85610; 85730; 86704; 86803; 87040; 87045; 87046; 87324; 87340; 87449; 87637-QW; 93005; 93010; 99285-25; G0378; Q9967